=== PATIENT | female | born 1975 | race Caucasian/White ===

== ENCOUNTER 2016-06-19 00:04 | Inpatient (IN) | payer MEDICAID ==
[2016-06-19 00:47] LABS: HEMATOCRIT 39.6 % (36.0-47.0); HEMOGLOBIN 12.9 g/dL (12.0-15.5); HGB HCT DIFFERENCE -0.9; MEAN CORPUSCULAR HEMOGLOBIN 29.4 pg (27.0-33.4); MEAN CORPUSCULAR HGB CONC 32.6 g/dL (32.0-36.0); MEAN CORPUSCULAR VOLUME 90 fl (80-97); RED BLOOD COUNT 4.41 10^6/uL (3.72-5.28); RED CELL DISTRIBUTION WIDTH 16.5 % (11.5-14.0); WHITE BLOOD COUNT 26.7 10^3/uL (4.0-10.5)
[2016-06-19 01:03] LABS: APPEARANCE,URINE SLIGHTLY-CLOUDY; BILIRUBIN,URINE NEGATIVE (NEGATIVE); GLUCOSE, URINE NEGATIVE (NEGATIVE); KETONES,URINE NEGATIVE (NEGATIVE); LEUKOCYTE ESTERASE,URINE TRACE (NEGATIVE); NITRITE,URINE NEGATIVE (NEGATIVE); PROTEIN,URINE 100 mg/dL (NEGATIVE); UROBILINOGEN,URINE NEGATIVE mg/dL (<2.0)
[2016-06-19 01:14] LABS: BASOPHILS % (MANUAL) 0 % (0-2); EOSINOPHILS % (MANUAL) 0 % (0-6); LYMPHOCYTES % (MANUAL) 7 % (13-45); TOTAL CELLS COUNTED 100
[2016-06-19 01:15] LABS: ALANINE AMINOTRANSFERASE 34 U/L (9-52); ALBUMIN 4.5 g/dL (3.5-5.0); ALKALINE PHOSPHATASE 165 U/L (38-126); ANISOCYTOSIS 1+; ASPARTATE AMINO TRANSFERASE 26 U/L (14-36); BILIRUBIN,DIRECT 0.4 mg/dL (0.0-0.4); BILIRUBIN,TOTAL 1.1 mg/dL (0.2-1.3); BLOOD UREA NITROGEN 11 mg/dL (7-20); CALCIUM 9.4 mg/dL (8.4-10.2); CREATININE RESULT 0.82 mg/dL (0.52-1.25); GLUCOSE 162 mg/dL (75-110); LIPASE 56.6 U/L (23-300); POTASSIUM 4.6 mmol/L (3.6-5.0); TOTAL PROTEIN 7.8 g/dL (6.3-8.2)
[2016-06-19] MEDS ORDERED: PROMETHAZINE HCL 25 MG TABLET PO ONE (01:15)
[2016-06-19] MEDS ORDERED: OXYCODONE-ACETAMINOPHEN 5-325 MG TABLET PO ONE (01:15)
[2016-06-19] MEDS ORDERED: NORMAL SALINE 1000 ML 1,000 ML IV ONE ×2 (01:16)
--- NOTE | 2016-06-19 01:18 | ER Document Report ---
ED General - General Chief Complaint: Flank Pain Stated Complaint: FLANK PAIN Time seen by provider: 01:17 Notes: Patient is a 40-year-old female that comes emergency department for chief complaint of vomiting, diarrhea, flank pain, fever. She states that she started vomiting today, has vomited over 10 times, vomiting and diarrhea have both been nonbloody. Patient states she is currently on Levaquin, she was discharged 1 week ago from [facility] in [place] on this for a kidney infection. 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 Patient reports some dysuria. She states she hurts all over her abdomen. TRAVEL OUTSIDE OF THE [place] IN LAST 30 DAYS: No - Related Data Allergies/Adverse Reactions: No Known Allergies Allergy (Verified 03/20/16 22:52) Past Medical History - General Information source: Patient - Social History Smoking Status: Current Every Day Smoker Chew tobacco use (# tins/day): No Frequency of alcohol use: Occasional Drug Abuse: None Lives with: Family Family History: Reviewed & Not Pertinent Patient has suicidal ideation: No Patient has homicidal ideation: No Renal/ Medical History: Reports: Hx Kidney Stones, Other - Vesicoureteral reflux. Denies: Hx Peritoneal Dialysis Psychiatric Medical History: Reports: Hx Depression - anxiety Past Surgical History: Reports: Hx Cholecystectomy, Hx Tonsillectomy - Adenoids , Hx Tubal Ligation - Immunizations Hx Diphtheria, Pertussis, Tetanus Vaccination: Yes Review of Systems - Review of Systems Constitutional: See HPI EENT: No symptoms reported Cardiovascular: No symptoms reported Respiratory: No symptoms reported Gastrointestinal: See HPI Genitourinary: See HPI Female Genitourinary: No symptoms reported Musculoskeletal: No symptoms reported Skin: No symptoms reported Hematologic/Lymphatic: No symptoms reported Neurological/Psychological: No symptoms reported Physical Exam - Vital signs Vitals: Temp Pulse Resp BP Pulse Ox 98.2 F 124 H 16 122/82 96 06/19/16 00:10 06/19/16 00:10 06/19/16 00:10 06/19/16 00:10 06/19/16 00:10 Interpretation: Normal - General General appearance: Alert In distress: None - HEENT Head: Normocephalic, Atraumatic Eyes: Normal Conjunctiva: Normal Extraocular movements intact: Yes Eyelashes: Normal Pupils: PERRL Mucous membranes: Dry Pharynx: Normal Neck: Normal - Respiratory Respiratory status: No respiratory distress Chest status: Nontender Breath sounds: Normal. No: Decreased air movement Chest palpation: Normal - Cardiovascular Rhythm: Regular, Tachycardia Heart sounds: Normal auscultation, S1 appreciated, S2 appreciated Murmur: No - Abdominal Inspection: Normal Distension: No distension Bowel sounds: Normal Tenderness: Tender - Generalized tenderness, nonspecific, no guarding, no rigidity. No: Guarding Organomegaly: No organomegaly - Back Back: Tender - Generalized tenderness over the mid to lower back, no overt CVA tenderness - Extremities General upper extremity: Normal inspection, Nontender, Normal color, Normal ROM , Normal temperature General lower extremity: Normal inspection, Nontender, Normal color, Normal ROM , Normal temperature, Normal weight bearing. No: Denise's sign - Neurological Neuro grossly intact: Yes Cognition: Normal Orientation: AAOx4 [place] Coma Scale Eye Opening: Spontaneous [place] Coma Scale Verbal: Oriented [place] Coma Scale Motor: Obeys Commands [place] Coma Scale Total: 15 Speech: Normal Motor strength normal: LUE, RUE, LLE, RLE Sensory: Normal - Psychological Associated symptoms: Normal affect, Normal mood - Skin Skin Temperature: Warm Skin Moisture: Dry Skin Color: Normal Course - Re-evaluation Re-evalutation: Patient initially very tachycardic, has generalized flank and abdominal pain, no guarding, patient reports fever of 102 at home, and currently no fever. Patient is not toxic appearing. No hypotension. Marked leukocytosis of 26.7, suspected dehydration component but this is still elevated. Catheterized urine performed with patient's consent to perform a culture, shows white blood cells, trace leukocyte esterase, patient has been taking Levaquin. With reported repeated kidney infections, vesicoureteral reflux. Chemistry shows low bicarbonate. Patient given antibiotics, after IV fluids tachycardia has improved significantly. Patient has not vomited after nausea medication. Ultrasound shows no hydronephrosis. Discussed with Dr. Chan, recommends discussion with internal medicine for potential admission. Discussed with Dr. Chester, he recommends adding Zosyn, states he will admit to telemetry. - Vital Signs Vital signs: Temp Pulse Resp BP Pulse Ox 98.0 F 104 H 14 112/66 97 06/19/16 06:40 06/19/16 03:53 06/19/16 03:53 06/19/16 06:29 06/19/16 06:29 - Laboratory Result Diagrams: 06/19/16 00:27 06/19/16 00:27 Laboratory results interpreted by me: 06/19/16 06/19/16 06/19/16 00:27 00:27 00:27 WBC 26.7 H RDW 16.5 H Plt Count 554 H Seg Neuts % (Manual) 87 H Lymphocytes % (Manual) 7 L Abs Neuts (Manual) 23.2 H Abs Monocytes (Manual) 1.6 H Carbon Dioxide 20 L Anion Gap 20 H Glucose 162 H Alkaline Phosphatase 165 H Urine Protein 100 H Ur Leukocyte Esterase TRACE H 06/19/16 01:55 WBC RDW Plt Count Seg Neuts % (Manual) Lymphocytes % (Manual) Abs Neuts (Manual) Abs Monocytes (Manual) Carbon Dioxide Anion Gap Glucose Alkaline Phosphatase Urine Protein 30 H Ur Leukocyte Esterase TRACE H Discharge - Discharge Clinical Impression: Vomiting, Fever, Urinary tract infection, Flank pain Disposition: ADMITTED INPATIENT Admitting Provider: Hospitalist Unit Admitted: Telemetry
[2016-06-19 01:25] LABS: CARBON DIOXIDE 20 mmol/L (22-30); CHLORIDE 103 mmol/L (98-107); SODIUM 142.9 mmol/L (137-145)
[2016-06-19 01:27] LABS: ANION GAP 20 (5-19)
[2016-06-19 02:15] LABS: APPEARANCE,URINE SLIGHTLY-CLOUDY; BILIRUBIN,URINE NEGATIVE (NEGATIVE); GLUCOSE, URINE NEGATIVE (NEGATIVE); KETONES,URINE NEGATIVE (NEGATIVE); LEUKOCYTE ESTERASE,URINE TRACE (NEGATIVE); NITRITE,URINE NEGATIVE (NEGATIVE); PROTEIN,URINE 30 mg/dL (NEGATIVE); URINE SPECIFIC GRAVITY 1.011; UROBILINOGEN,URINE NEGATIVE mg/dL (<2.0)
[2016-06-19] MEDS ORDERED: MORPHINE SULFATE 10 MG/ML INJ IV ONE (04:27)
[2016-06-19] MEDS ORDERED: CEFTRIAXONE 1 GM/D5W RTU 50 ML IV ONE (04:28)
[2016-06-19] MEDS ORDERED: PIPERACILLIN/TAZOBACTAM 3.375 GM VIAL IV ONE (05:53)
[2016-06-19] MEDS ORDERED: ACETAMINOPHEN 325 MG TABLET PO PRN (07:41)
[2016-06-19 07:53] LABS: ABSOLUTE BASOPHILS # (AUTO) 0.1 10^3/uL (0.0-0.2); ABSOLUTE EOSINOPHILS # (AUTO) 0.1 10^3/uL (0.0-0.6); ABSOLUTE LYMPHOCYTES (AUTO) 1.7 10^3/uL (0.5-4.7); ABSOLUTE MONOCYTES (AUTO) 0.7 10^3/uL (0.1-1.4); ABSOLUTE NEUT (AUTO) 15.4 10^3/uL (1.7-8.2); BASOPHILS % (AUTO) 0.4 % (0-2); EOSINOPHILS % (AUTO) 0.4 % (0-6); HEMATOCRIT 31.7 % (36.0-47.0); HGB HCT DIFFERENCE -0.5; LYMPHOCYTES % (AUTO) 9.7 % (13-45); MEAN CORPUSCULAR HEMOGLOBIN 29.7 pg (27.0-33.4); MEAN CORPUSCULAR HGB CONC 32.9 g/dL (32.0-36.0); MEAN CORPUSCULAR VOLUME 90 fl (80-97); RED BLOOD COUNT 3.52 10^6/uL (3.72-5.28); RED CELL DISTRIBUTION WIDTH 16.8 % (11.5-14.0); SEGMENTED NEUTROPHILS % (AUTO) 85.5 % (42-78)
[2016-06-19 08:00] LABS: ANION GAP 12 (5-19); BLOOD UREA NITROGEN 10 mg/dL (7-20); CALCIUM 8.4 mg/dL (8.4-10.2); CARBON DIOXIDE 23 mmol/L (22-30); CHLORIDE 109 mmol/L (98-107); CREATININE RESULT 0.75 mg/dL (0.52-1.25); GLUCOSE 120 mg/dL (75-110); HEMOGLOBIN 10.4 g/dL (12.0-15.5); POTASSIUM 4.2 mmol/L (3.6-5.0); SODIUM 143.8 mmol/L (137-145)
[2016-06-19] MEDS: NORMAL SALINE 1000 ML 1,000 ML IV PRN ×2 (09:22→17:37)
[2016-06-19] MEDS: ENOXAPARIN SODIUM INJ 40 MG/0.4 ML DISP.SYRIN SUBCUT SCH (09:24)
[2016-06-19] MEDS: MORPHINE SULFATE 10 MG/ML INJ IV PRN ×2 (09:30→13:57)
--- NOTE | 2016-06-19 09:43 | PDOC H&P ---
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 States this is her first urinary tract infection in approximately 2-1/2 years. Was discharged from [facility] on Levaquin, which she has been taking as prescribed. Has done well until approximately the last 24 hours, when she's had bilateral flank pain, right greater than left, subjective fever, multiple episodes of nonbloody vomiting, and some diarrhea. Describes the flank pain and her dysuria like "someone's beating me up whenever I pee." Flank pain increases with much of any movement, and any contact with the area of involvement. States she was told recently that she does have nephrolithiasis. Old records from her recent hospital stay have reportedly been requested. Patient has been discussed with emergency room physician who evaluated the patient. . Laboratory results are listed in [facility] and are reviewed. X-ray summary results are listed below, with full report(s) reviewed. . Social history/personal habits: . 2 children. Unemployed. 3 cigarettes a day; smoked more in the recent past, but has been trying to quit. A fifth of rum every 3 weeks. Denies illicit drug use. Allergies/adverse reactions NKDA. Home medications normally none, except as noted above with the oral Levaquin. REVIEW OF SYSTEMS: Constitutional: See history and present illness. Eyes: No current vision complaints. ENT: No swallowing problems or complaints. No hearing problems or complaints. Pulmonary: No current complaints. Cardiovascular: No current complaints, including chest pain. Gastrointestinal: See history and present illness. States she is "prone to diarrhea" since her cholecystectomy. Skin: No current complaints, including rashes. Hematologic: No unusual easy bruising or bleeding. Neurologic: No current complaints, including numbness or tingling. Musculoskeletal: No current complaints, including painful joints. Psychiatric: Mild Anxiety Endocrine: No current complaints, including polyuria. Genitourinary: See history and present illness. PHYSICAL EXAMINATION: 5 feet 7 inches tall. 58.6 kg. BMI 20.2 kg/m. Blood pressure 112/66. Temperature 98.0. Pulse 84 and regular. 97% saturation on room air. Respirations are 15 and unlabored. Well-nourished well-developed young middle-aged female who appears obviously not to feel very well. Awake alert and cooperative, however. Female emergency room nurse Tatum is present. Skin is warm and dry. No grossly obvious evidence of rash in areas of skin examined. No subcutaneous nodules palpated. ENT: Hearing grossly normal Mildly hard of hearing to normal conversation. Tongue midline on protrusion pink and slightly tacky. Eyes: No scleral icterus. Pupils equal and reactive to light at 4 mm. [place] conjunctivae. Neck is supple and nontender to gentle active range of motion and palpation. Midline trachea. No palpable thyroid nodule mass enlargement or tenderness. Lymphatic: No palpable cervical or clavicular nodes. Neck and lymphatic exams limited by patient body habitus. Psychiatric: Reasonable insight into acute and chronic medical issues. Oriented to time location and why here. Lungs: Auscultation reveals clear and equal breath sounds bilaterally. No use of accessory respiratory muscles. Cardiovascular: Heart regular rate and rhythm, without gallop murmur or rub. No carotid or abdominal aortic bruits. No ankle or pedal edema. Faintly palpable dorsalis pedis pulses. Abdomen: soft, , slightly distended with rare bowel sounds. Diffusely tender, more so on the right flank and right costovertebral angle region. No evidence of guarding or peritoneal signs. Unable to adequately evaluate abdomen for masses or organomegaly due to distention and discomfort. Extremities: Feet are warm and dry. No calf tenderness to compression. No grossly obvious visual evidence of calf swelling. Gentle manipulation of lower extremities fails to reveal any obvious evidence of injury or instability to knees hips or ankles. Neurologic: Moves upper extremities grossly normally. Patellar reflexes absent. Absent Babinski. Light touch is intact at feet. Dorsiflexion and plantarflexion of feet 5 / 5 and symmetric. Past Medical History Cardiac Medical History: Reports: Other - Elevated blood pressure without diagnosis of hypertension, per patient. Denies: Congestive Heart Failure, DVT, Myocardial Infarction, Hyperlipidema, Pulmonary Embolism Pulmonary Medical History: Denies: Asthma, Chronic Obstructive Pulmonary Disease (COPD), Sleep Apnea EENT Medical History: Denies: Eyes, Ears, Throat Neurological Medical History: Denies: Hemorrhagic CVA, Ischemic CVA, Seizures Endocrine Medical History: Denies: Diabetes Mellitus Type 1, Diabetes Mellitus Type 2, Hyperthyroidism, Hypothyroidism Renal/ Medical History: Reports: Nephrolithiasis, Other - Vesicoureteral reflux GI Medical History: Reports: Other - Intermittent diarrhea since her cholecystectomy. Denies: Cirrhosis, Gastroesophageal Reflux Disease, Hepatitis, Peptic Ulcer Disease Musculoskeltal Medical History: Reports: None Skin Medical History: Reports: None Psychiatric Medical History: Reports: General Anxiety Disorder, Other - A fifth of rum every 3 weeks or so. Denies: Depression, Substance Abuse, Tobacco Dependency Hematology: Reports: None Infectious Medical History: Denies: Clostridium Difficile, Hepatitis B, Hepatitis C, Methicillin- Resistant Staph Aureus Past Surgical History Past Surgical History: Reports: Cholecystectomy, Tonsillectomy - Adenoids, Tubal Ligation Social History Information Source: Patient, Emergency Med Personnel, [facility] Records Lives with: Family Smoking Status: Current Every Day Smoker Frequency of Alcohol Use: Social - Fifth of rum every 3 weeks or so. Drugs: None - Advance Directive Resuscitation Status: Full Code Surrogate healthcare decision maker:: Mother Family History Family History: Reviewed & Not Pertinent Parental Family History Reviewed: Yes Children Family History Reviewed: Yes Sibling(s) Family History Reviewed.: Yes Medication/Allergy Home Medications: Amoxicillin/Potassium Clav [Augmentin 875-125 Tablet] 1 each PO BID #10 tablet 06/21/16 RX: Phenazopyridine HCl [Pyridium 200 mg Tablet] 200 mg PO Q8HP PRN #10 tablet 06/21/16 Tramadol HCl [Ultram 50 mg Tablet] 50 mg PO Q4HP PRN #10 tablet 06/21/16 Allergies/Adverse Reactions: No Known Allergies Allergy (Unverified 06/20/16 09:10) Physical Exam Vital Signs: Temp Pulse Resp BP Pulse Ox 98.0 F 104 H 16 107/68 97 06/19/16 06:40 06/19/16 03:53 06/19/16 07:01 06/19/16 07:01 06/19/16 07:01 Results Impressions: Renal Ultrasound 06/19/16 01:27 IMPRESSION: NORMAL RENAL AND BLADDER ULTRASOUND. Assessment & Plan - Diagnosis (1) Acidosis Is this a current diagnosis for this admission?: YesPlan: Follow-up Chem-7. Discussed with daytime team. (2) Flank pain Is this a current diagnosis for this admission?: YesPlan: When necessary pain medication. (3) Urinary tract infection Qualifiers: Urinary tract infection type: site unspecified Is this a current diagnosis for this admission?: YesPlan: Blood and urine cultures. Cristian. I have strongly encouraged patient not to get out of bed without notifying staff , to avoid a fall with injury. Knee high SCDs for DVT prophylaxis, [along with subcutaneous Lovenox . Impression and plans were discussed with patient, who concurs. Time spent in evaluation and management of patient: 59 minutes. (4) Congenital abnormality ureter Is this a current diagnosis for this admission?: Yes - Inpatient Certification Based on my medical assessment, after consideration of the patient's comorbidities, presenting symptoms, or acuity I expect that the services needed warrant INPATIENT care.: Yes I certify that my determination is in accordance with my understanding of Medicare's requirements for reasonable and necessary INPATIENT services [42 CFR 412.3e].: Yes Medical Necessity: Need Close Monitoring Due to Risk of Patient Decompensation, Need for IV Antibiotics, Risk of Complication if Not Cared For in Hospital, Risk of Diagnosis Which Will Require Inpatient Eval/Care/Monitoring Post Hospital Care: D/C or Transfer Summary
[2016-06-19] MEDS: THIAMINE HCL 100 MG TABLET PO SCH (11:31)
[2016-06-19] MEDS: MULTIVITAMIN TABLET PO SCH (11:32)
[2016-06-19] MEDS: PIPERACILLIN SODIUM/TAZOBACTAM 3.375 GM in NORMAL SALINE 100 ML IV SCH ×2 (11:32→17:37)
[2016-06-19] MEDS: FOLIC ACID 1 MG TABLET PO SCH (11:32)
[2016-06-19] MEDS: PROMETHAZINE HCL INJ 25 MG/1 ML VIAL IV PRN (12:49)
--- NOTE | 2016-06-19 17:33 | PDOC PROGRESS REPORT ---
Subjective Progress Note for:: 06/19/16 Subjective:: The patient was seen earlier today on rounds. The patient complains of ongoing flank pain citing the stretcher as the cause. The patient is also noting urinary hesitancy. The patient denies any nausea, vomiting, diarrhea, shortness of breath, dizziness, chest pain, heart palpitations, fevers, or chills. The patient has remained afebrile. Blood pressures have been in a good range. When prompted the patient voices no other concerns at this time. Review of systems: The rest of the review of systems is negative. Physical Exam Vital Signs: Temp Pulse Resp BP Pulse Ox 98.4 F 104 H 16 119/80 99 06/19/16 16:45 06/19/16 03:53 06/19/16 16:10 06/19/16 16:10 06/19/16 16:10 General appearance: PRESENT: no acute distress, cooperative, well-developed, well-nourished Head exam: PRESENT: atraumatic, normocephalic Eye exam: PRESENT: conjunctiva pink, EOMI, PERRLA. ABSENT: scleral icterus Ear exam: PRESENT: normal external ear exam Mouth exam: PRESENT: moist, tongue midline Neck exam: ABSENT: carotid bruit, JVD, lymphadenopathy, thyromegaly Respiratory exam: PRESENT: clear to auscultation [place]. ABSENT: rales, rhonchi, wheezes Cardiovascular exam: PRESENT: RRR. ABSENT: diastolic murmur, rubs, systolic murmur Pulses: PRESENT: normal dorsalis pedis pul Vascular exam: PRESENT: normal capillary refill GI/Abdominal exam: PRESENT: normal bowel sounds, soft. ABSENT: distended, guarding, mass, organolmegaly, rebound, tenderness Rectal exam: PRESENT: deferred Extremities exam: PRESENT: full ROM. ABSENT: calf tenderness, clubbing, pedal edema Neurological exam: PRESENT: alert, awake, oriented to person, oriented to place , oriented to time, oriented to situation, CN II-XII grossly intact. ABSENT: motor sensory deficit Psychiatric exam: PRESENT: appropriate affect, normal mood. ABSENT: homicidal ideation, suicidal ideation Skin exam: PRESENT: dry, intact, warm. ABSENT: cyanosis, rash Results Impressions: Renal Ultrasound 06/19/16 01:27 IMPRESSION: NORMAL RENAL AND BLADDER ULTRASOUND. Assessment & Plan - Diagnosis (1) Pyelonephritis Is this a current diagnosis for this admission?: YesPlan: Currently awaiting culture and sensitivity. Will continue current antibiotic coverage as the patient has had improvement. Will add Flomax given urinary frequency hesitancy. (2) Flank pain Is this a current diagnosis for this admission?: YesPlan: The patient's creatinine is in a normal range will scheduled Toradol and follow. (3) Vomiting Qualifiers: Nausea presence: unspecified Is this a current diagnosis for this admission?: YesPlan: Resolved at this time (4) Congenital abnormality ureter Is this a current diagnosis for this admission?: Yes - Time Time Spent with patient: 35 or more minutes Medications reviewed and adjusted accordingly: Yes Anticipated discharge: Home Within: within 24 hours, within 48 hours Disposition: The patient is a full code. Pending patient's symptomatology and diagnostic findings will reevaluate in the a.m.
[2016-06-19] MEDS: KETOROLAC TROMETHAMINE INJ/PF 30 MG/1 ML SDV IV SCH (17:38)
[2016-06-19] MEDS: TAMSULOSIN HCL 0.4 MG CAP.SR.24H PO SCH (18:39)
[2016-06-19] MEDS ORDERED: HYDROMORPHONE HCL INJ/PF 2 MG/ML AMPULE IV PRN (18:56)
[2016-06-20] MEDS: PIPERACILLIN SODIUM/TAZOBACTAM 3.375 GM in NORMAL SALINE 100 ML IV SCH ×4 (00:08→17:48)
[2016-06-20] MEDS: PROMETHAZINE HCL INJ 25 MG/1 ML VIAL IV PRN ×2 (00:08→20:17)
[2016-06-20] MEDS: KETOROLAC TROMETHAMINE INJ/PF 30 MG/1 ML SDV IV SCH ×4 (00:08→17:35)
[2016-06-20] MEDS: ENOXAPARIN SODIUM INJ 40 MG/0.4 ML DISP.SYRIN SUBCUT SCH (07:47)
[2016-06-20] MEDS: HYDROMORPHONE HCL INJ/PF 2 MG/ML AMPULE IV PRN ×3 (09:04→20:17)
[2016-06-20] MEDS: MULTIVITAMIN TABLET PO SCH (09:29)
[2016-06-20] MEDS: THIAMINE HCL 100 MG TABLET PO SCH (09:29)
[2016-06-20] MEDS: FOLIC ACID 1 MG TABLET PO SCH (09:29)
[2016-06-20] MEDS: CLONAZEPAM 1 MG TABLET PO PRN (11:23)
[2016-06-20 14:13] LABS: HEMATOCRIT 30.4 % (36.0-47.0); HGB HCT DIFFERENCE -0.4; MEAN CORPUSCULAR HEMOGLOBIN 29.9 pg (27.0-33.4); MEAN CORPUSCULAR HGB CONC 32.9 g/dL (32.0-36.0); MEAN CORPUSCULAR VOLUME 91 fl (80-97); RED BLOOD COUNT 3.34 10^6/uL (3.72-5.28); RED CELL DISTRIBUTION WIDTH 16.5 % (11.5-14.0)
[2016-06-20 14:31] LABS: ANION GAP 8 (5-19); BLOOD UREA NITROGEN 9 mg/dL (7-20); CALCIUM 9.4 mg/dL (8.4-10.2); CARBON DIOXIDE 26 mmol/L (22-30); CHLORIDE 109 mmol/L (98-107); CREATININE RESULT 0.72 mg/dL (0.52-1.25); GLUCOSE 86 mg/dL (75-110); POTASSIUM 3.7 mmol/L (3.6-5.0); SODIUM 143.4 mmol/L (137-145)
--- NOTE | 2016-06-20 16:34 | PDOC PROGRESS REPORT ---
Subjective Progress Note for:: 06/20/16 Subjective:: The patient was seen earlier today on rounds. The patient complains of terminated pain of her right flank area which radiates laterally the patient does note it is positional. The patient is also noting urinary hesitancy has improved. 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 The patient denies any nausea, vomiting, diarrhea, shortness of breath, dizziness, chest pain, heart palpitations, fevers, or chills. The patient has remained afebrile. Blood pressures have been in a good range. When prompted the patient voices no other concerns at this time. Review of systems: The rest of the review of systems is negative. Physical Exam Vital Signs: Temp Pulse Resp BP Pulse Ox 97.8 F 93 16 142/89 H 100 06/20/16 15:06 06/20/16 15:06 06/20/16 15:06 06/20/16 15:06 06/20/16 15:06 Intake & Output 06/18/16 06/19/16 06/20/16 23:59 23:59 23:59 Intake Total 225 1412 Balance 225 1412 General appearance: PRESENT: no acute distress, cooperative, well-developed, well-nourished Head exam: PRESENT: atraumatic, normocephalic Eye exam: PRESENT: conjunctiva pink, EOMI, PERRLA. ABSENT: scleral icterus Ear exam: PRESENT: normal external ear exam Mouth exam: PRESENT: moist, tongue midline Neck exam: ABSENT: carotid bruit, JVD, lymphadenopathy, thyromegaly Respiratory exam: PRESENT: clear to auscultation [place]. ABSENT: rales, rhonchi, wheezes Cardiovascular exam: PRESENT: RRR. ABSENT: diastolic murmur, rubs, systolic murmur Pulses: PRESENT: normal dorsalis pedis pul Vascular exam: PRESENT: normal capillary refill GI/Abdominal exam: PRESENT: normal bowel sounds, soft. ABSENT: distended, guarding, mass, organolmegaly, rebound, tenderness Rectal exam: PRESENT: deferred Extremities exam: PRESENT: full ROM. ABSENT: calf tenderness, clubbing, pedal edema Neurological exam: PRESENT: alert, awake, oriented to person, oriented to place , oriented to time, oriented to situation, CN II-XII grossly intact. ABSENT: motor sensory deficit Psychiatric exam: PRESENT: appropriate affect, normal mood. ABSENT: homicidal ideation, suicidal ideation Skin exam: PRESENT: dry, intact, warm. ABSENT: cyanosis, rash Results Laboratory Results: 06/20/16 14:01 06/20/16 14:01 06/20/16 06/20/16 14:01 14:01 WBC 6.0 RBC 3.34 L Hgb 10.0 L Hct 30.4 L MCV 91 MCH 29.9 MCHC 32.9 RDW 16.5 H Plt Count 395 Sodium 143.4 Potassium 3.7 Chloride 109 H Carbon Dioxide 26 Anion Gap 8 BUN 9 Creatinine 0.72 Est GFR ( Amer) > 60 Est GFR (Non-Af Amer) > 60 Glucose 86 Calcium 9.4 Impressions: Renal Ultrasound 06/19/16 01:27 IMPRESSION: NORMAL RENAL AND BLADDER ULTRASOUND. Limited or Localized CT 06/20/16 00:00 IMPRESSION: Nonobstructing stone right kidney. Assessment & Plan - Diagnosis (1) Pyelonephritis Is this a current diagnosis for this admission?: YesPlan: Currently awaiting culture and sensitivity. Will continue current antibiotic coverage as the patient has had improvement. Will continue Flomax given urinary frequency hesitancy. Will add Pyridium. CT stone sequence was negative for obstructive process. (2) Flank pain Is this a current diagnosis for this admission?: YesPlan: The patient's creatinine is in a normal range will scheduled Toradol and follow. (3) Vomiting Qualifiers: Nausea presence: unspecified Is this a current diagnosis for this admission?: YesPlan: Resolved at this time (4) Congenital abnormality ureter Is this a current diagnosis for this admission?: Yes - Time Time Spent with patient: 25-34 minutes Medications reviewed and adjusted accordingly: Yes Anticipated discharge: Home Within: within 24 hours
[2016-06-20] MEDS ORDERED: NORMAL SALINE 1000 ML 1,000 ML IV PRN (16:35)
[2016-06-20] MEDS ORDERED: PHENAZOPYRIDINE HCL 200 MG TABLET PO ONE (17:00)
[2016-06-20] MEDS: TAMSULOSIN HCL 0.4 MG CAP.SR.24H PO SCH (20:17)
[2016-06-20] MEDS: PHENAZOPYRIDINE HCL 200 MG TABLET PO SCH (21:56)
[2016-06-21] MEDS: PIPERACILLIN SODIUM/TAZOBACTAM 3.375 GM in NORMAL SALINE 100 ML IV SCH ×3 (00:17→11:45)
[2016-06-21] MEDS: KETOROLAC TROMETHAMINE INJ/PF 30 MG/1 ML SDV IV SCH ×3 (00:17→11:42)
[2016-06-21] MEDS: HYDROMORPHONE HCL INJ/PF 2 MG/ML AMPULE IV PRN ×2 (02:16→07:41)
[2016-06-21] MEDS: PROMETHAZINE HCL INJ 25 MG/1 ML VIAL IV PRN ×3 (02:16→12:34)
[2016-06-21] MEDS: PHENAZOPYRIDINE HCL 200 MG TABLET PO SCH (06:18)
[2016-06-21] MEDS: ENOXAPARIN SODIUM INJ 40 MG/0.4 ML DISP.SYRIN SUBCUT SCH (07:42)
[2016-06-21] MEDS: CLONAZEPAM 1 MG TABLET PO PRN (07:48)
[2016-06-21] MEDS: MULTIVITAMIN TABLET PO SCH (09:43)
[2016-06-21] MEDS: FOLIC ACID 1 MG TABLET PO SCH (09:43)
[2016-06-21] MEDS: THIAMINE HCL 100 MG TABLET PO SCH (09:43)
[2016-06-21] MEDS ORDERED: HYDROMORPHONE HCL INJ/PF 2 MG/ML AMPULE IV ONE (11:34)
[2016-06-21 11:54] VITALS: BP 132/74
--- NOTE | 2016-06-21 17:12 | PDOC DISCHARGE SUMMARY ---
General - Admit/Disc Date/PCP Admission Date/Primary Care Provider: 06/19/16 07:41 [facility]. Discharge Date: 06/21/16 - Discharge Diagnosis (1) Pyelonephritis Is this a current diagnosis for this admission?: Yes (2) Congenital abnormality ureter Is this a current diagnosis for this admission?: Yes - Additional Information Resuscitation Status: Full Code Discharge Diet: As Tolerated, Regular Discharge Activity: Activity As Tolerated Home Medications: Amoxicillin/Potassium Clav [Augmentin 875-125 Tablet] 1 each PO BID #10 tablet 06/21/16 Phenazopyridine HCl [Pyridium 200 mg Tablet] 200 mg PO Q8HP PRN #10 tablet 06/21 Tramadol HCl [Ultram 50 mg Tablet] 50 mg PO Q4HP PRN #10 tablet 06/21/16 History of Present Illness Patient complains of: Abdominal pain, flank pain, vomiting, fever History of Present Illness: ROBERT BELLAMY is a 40 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 States this is her first urinary tract infection in approximately 2-1/2 years. Was discharged from [facility] on Levaquin, which she has been taking as prescribed. Has done well until approximately the last 24 hours, when she's had bilateral flank pain, right greater than left, subjective fever, multiple episodes of nonbloody vomiting, and some diarrhea. Describes the flank pain and her dysuria like "someone's beating me up whenever I pee." Flank pain increases with much of any movement, and any contact with the area of involvement. States she was told recently that she does have nephrolithiasis. Hospital Course Hospital Course: The patient was admitted to continue was telemetry unit. Urine analysis and culture was obtained. The patient had findings suggestive of a urinary tract infection given recent history pyelonephritis. Patient's urine culture revealed no growth given recent antibiotic use this most likely was skewed. The patient's stay was complicated by emotional stressors such as learning she was going to be a grandmother. The patient had numerous emotional outbursts to nursing staff and including myself. These outbursts were abusive verbally in nature to nursing staff. The patient is stable for discharge with a scheduled follow-up with [facility] Selected Entries 06/21/16 11:51 Temperature 97.6 F Pulse Rate 83 Blood Pressure 132/74 H [Upper Arm] 06/20/16 14:01 WBC 6.0 06/20/16 11:15 Blood Culture - Preliminary Blood NO GROWTH IN 24 HOURS 06/20/16 10:10 Blood Culture - Preliminary Blood NO GROWTH IN 24 HOURS 06/19/16 00:27 Urine Culture - Final Catheterized Urine NO GROWTH 2 DAYS Physical Exam Vital Signs: Temp Pulse Resp BP Pulse Ox 97.6 F 83 18 132/74 H 99 06/21/16 11:51 06/21/16 11:51 06/21/16 11:51 06/21/16 11:51 06/21/16 11:51 Intake & Output 06/19/16 06/20/16 06/21/16 23:59 23:59 23:59 Intake Total 225 2662 2009 Output Total 1650 Balance 225 2662 359 Weight 58.6 kg General appearance: PRESENT: no acute distress, cooperative, well-developed, well-nourished Head exam: PRESENT: atraumatic, normocephalic Eye exam: PRESENT: conjunctiva pink, EOMI, PERRLA. ABSENT: scleral icterus Ear exam: PRESENT: normal external ear exam Mouth exam: PRESENT: moist, tongue midline Neck exam: ABSENT: carotid bruit, JVD, lymphadenopathy, thyromegaly Respiratory exam: PRESENT: clear to auscultation [place]. ABSENT: rales, rhonchi, wheezes Cardiovascular exam: PRESENT: RRR. ABSENT: diastolic murmur, rubs, systolic murmur Pulses: PRESENT: normal dorsalis pedis pul Vascular exam: PRESENT: normal capillary refill GI/Abdominal exam: PRESENT: normal bowel sounds, soft. ABSENT: distended, guarding, mass, organolmegaly, rebound, tenderness Rectal exam: PRESENT: deferred Extremities exam: PRESENT: full ROM. ABSENT: calf tenderness, clubbing, pedal edema Neurological exam: PRESENT: alert, awake, oriented to person, oriented to place , oriented to time, oriented to situation, CN II-XII grossly intact. ABSENT: motor sensory deficit Psychiatric exam: PRESENT: appropriate affect, normal mood. ABSENT: homicidal ideation, suicidal ideation Skin exam: PRESENT: dry, intact, warm. ABSENT: cyanosis, rash Results Laboratory Results: Labs- Last Values WBC 6.0 10^3/uL (4.0-10.5) 06/20/16 14:01 RBC 3.34 10^6/uL (3.72-5.28) L 06/20/16 14:01 Hgb 10.0 g/dL (12.0-15.5) L 06/20/16 14:01 Hct 30.4 % (36.0-47.0) L 06/20/16 14:01 MCV 91 fl (80-97) 06/20/16 14:01 MCH 29.9 pg (27.0-33.4) 06/20/16 14:01 MCHC 32.9 g/dL (32.0-36.0) 06/20/16 14:01 RDW 16.5 % (11.5-14.0) H 06/20/16 14:01 Plt Count 395 10^3/uL (150-450) 06/20/16 14:01 Total Counted 100 06/19/16 00:27 Seg Neutrophils % 85.5 % (42-78) H 06/19/16 06:45 Seg Neuts % (Manual) 87 % (42-78) H 06/19/16 00:27 Lymphocytes % 9.7 % (13-45) L 06/19/16 06:45 Lymphocytes % (Manual) 7 % (13-45) L 06/19/16 00:27 Monocytes % 4.0 % (3-13) 06/19/16 06:45 Monocytes % (Manual) 6 % (3-13) 06/19/16 00:27 Eosinophils % 0.4 % (0-6) 06/19/16 06:45 Eosinophils % (Manual) 0 % (0-6) 06/19/16 00:27 Basophils % 0.4 % (0-2) 06/19/16 06:45 Basophils % (Manual) 0 % (0-2) 06/19/16 00:27 Absolute Neutrophils 15.4 10^3/uL (1.7-8.2) H 06/19/16 06:45 Abs Neuts (Manual) 23.2 10^3/uL (1.7-8.2) H 06/19/16 00:27 Absolute Lymphocytes 1.7 10^3/uL (0.5-4.7) 06/19/16 06:45 Abs Lymphs (Manual) 1.9 10^3/uL (0.5-4.7) 06/19/16 00:27 Absolute Monocytes 0.7 10^3/uL (0.1-1.4) 06/19/16 06:45 Abs Monocytes (Manual) 1.6 10^3/uL (0.1-1.4) H 06/19/16 00:27 Absolute Eosinophils 0.1 10^3/uL (0.0-0.6) 06/19/16 06:45 Absolute Eos (Manual) 0.0 10^3/uL (0.0-0.6) 06/19/16 00:27 Absolute Basophils 0.1 10^3/uL (0.0-0.2) 06/19/16 06:45 Abs Basophils (Manual) 0.0 10^3/uL (0.0-0.2) 06/19/16 00:27 Platelet Comment INCREASED 06/19/16 00:27 Anisocytosis 1+ 06/19/16 00:27 Sodium 143.4 mmol/L (137-145) 06/20/16 14:01 Potassium 3.7 mmol/L (3.6-5.0) 06/20/16 14:01 Chloride 109 mmol/L (98-107) H 06/20/16 14:01 Carbon Dioxide 26 mmol/L (22-30) 06/20/16 14:01 Anion Gap 8 (5-19) 06/20/16 14:01 BUN 9 mg/dL (7-20) 06/20/16 14:01 Creatinine 0.72 mg/dL (0.52-1.25) 06/20/16 14:01 Est GFR ( Amer) > 60 (>60) 06/20/16 14:01 Est GFR (Non-Af Amer) > 60 (>60) 06/20/16 14:01 Glucose 86 mg/dL (75-110) 06/20/16 14:01 Calcium 9.4 mg/dL (8.4-10.2) 06/20/16 14:01 Total Bilirubin 1.1 mg/dL (0.2-1.3) 06/19/16 00:27 Direct Bilirubin 0.4 mg/dL (0.0-0.4) 06/19/16 00:27 Indirect Bilirubin Not Reportable 06/19/16 00:27 Neonat Total Bilirubin Not Reportable 06/19/16 00:27 AST 26 U/L (14-36) 06/19/16 00:27 ALT 34 U/L (9-52) 06/19/16 00:27 Alkaline Phosphatase 165 U/L (38-126) H 06/19/16 00:27 Total Protein 7.8 g/dL (6.3-8.2) 06/19/16 00:27 Albumin 4.5 g/dL (3.5-5.0) 06/19/16 00:27 Lipase 56.6 U/L (23-300) 06/19/16 00:27 Urine Color YELLOW 06/19/16 01:55 Urine Appearance SLIGHTLY-CLOUDY 06/19/16 01:55 Urine pH 5.0 (5.0-9.0) 06/19/16 01:55 Ur Specific [place] 1.011 06/19/16 01:55 Urine Protein 30 mg/dL (NEGATIVE) H 06/19/16 01:55 Urine Glucose (UA) NEGATIVE mg/dL (NEGATIVE) 06/19/16 01:55 Urine Ketones NEGATIVE mg/dL (NEGATIVE) 06/19/16 01:55 Urine Blood NEGATIVE (NEGATIVE) 06/19/16 01:55 Urine Nitrite NEGATIVE (NEGATIVE) 06/19/16 01:55 Urine Bilirubin NEGATIVE (NEGATIVE) 06/19/16 01:55 Urine Urobilinogen NEGATIVE mg/dL (<2.0) 06/19/16 01:55 Ur Leukocyte Esterase TRACE (NEGATIVE) H 06/19/16 01:55 Urine WBC (Auto) 16 /HPF 06/19/16 01:55 Urine RBC (Auto) 1 /HPF 06/19/16 01:55 Urine Bacteria (Auto) TRACE /HPF 06/19/16 01:55 Squamous Epi Cells Auto 2 /HPF 06/19/16 01:55 Urine Mucus (Auto) RARE /LPF 06/19/16 01:55 Urine Ascorbic Acid NEGATIVE (NEGATIVE) 06/19/16 01:55 Urine HCG, Qual NEGATIVE (NEGATIVE) 06/19/16 00:27 C. difficile Tox (PCR) NEGATIVE (NEGATIVE) 06/20/16 12:00 Impressions: Renal Ultrasound 06/19/16 01:27 IMPRESSION: NORMAL RENAL AND BLADDER ULTRASOUND. Limited or Localized CT 06/20/16 00:00 IMPRESSION: Nonobstructing stone right kidney. Qualifiers PATEINT BEING DISCHARGED WITH ANY OF THE FOLLOWING DIAGNOSIS?: No Plan Discharge Plan: The patient is to follow-up with urology as already scheduled. Time Spent: Less than 30 Minutes
== END 2016-06-21 13:10 | disposition home or self-care (01) | DRG 690 ==
LOC: ER 00:04 → EH 06:04 → UNDOADMIN 06:04 → EH 07:41 → 4S 17:23
PROVIDERS: ADMIT Family Medicine; ATTEND Family Medicine
DX: N12 Tubulo-interstitial nephritis, not specified as acute or chronic (principal); E87.2 Acidosis; Q62.5 Duplication of ureter; N20.0 Calculus of kidney; F17.210 Nicotine dependence, cigarettes, uncomplicated; F41.1 Generalized anxiety disorder; Z90.49 Acquired absence of other specified parts of digestive tract; F32.9 Major depressive disorder, single episode, unspecified
CPT/HCPCS: 36415; 51701; 76380; 76770; 80048; 80053; 81001; 81025; 83690; 85025; 85027; 87040; 87077; 87086; 87186; 87493; 96361; 96365; 96375; 99285; J0696; J1170; J1650; J1885; J2270; J2543; J2550; J3490; J7030

== ENCOUNTER 2016-10-27 23:36 | Emergency (ER) | payer MEDICAID ==
[2016-10-28] MEDS ORDERED: KETOROLAC TROMETHAMINE 60 MG/2 ML SDV IM ONE (00:35)
[2016-10-28] MEDS ORDERED: ONDANSETRON 4 MG TAB.RAPDIS PO ONE (00:35)
--- NOTE | 2016-10-28 00:37 | ER Document Report ---
ED Medical Screen (RME) - General Chief Complaint: Flank Pain Stated Complaint: FLANK PAIN Time Seen by Provider: 10/28/16 00:35 Mode of Arrival: Ambulatory Information source: Patient Notes: 41-year-old female presents to ED for bilateral flank pain. She states she has a history of 11% reflux with frequent kidney infections. 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 She has been nauseated with 6-7 vomits today. She states her kidneys director sore and swollen. She has had pain for about 4 hours. Patient is very tender to touch bilateral flank. And she tried retching in the pit area. I have greeted and performed a rapid initial assessment of this patient. A comprehensive ED assessment and evaluation of the patient, analysis of test results and completion of medical decision making process will be conducted by an additional ED providers. TRAVEL OUTSIDE OF THE [place] IN LAST 30 DAYS: No - Related Data Allergies/Adverse Reactions: No Known Allergies Allergy (Unverified 06/20/16 09:10) Past Medical History - Past Medical History Cardiac Medical History: Denies: Hx Congestive Heart Failure, Hx DVT, Hx Heart Attack, Hx Hypercholesterolemia, Hx Pulmonary Embolism Pulmonary Medical History: Denies: Hx Asthma, Hx COPD, Hx Sleep Apnea Neurological Medical History: Denies: Hx Seizures Endocrine Medical History: Denies: Hx Diabetes Mellitus Type 1, Hx Diabetes Mellitus Type 2, Hx Hyperthyroidism, Hx Hypothyroidism Renal/ Medical History: Reports: Hx Kidney Stones. Denies: Hx Peritoneal Dialysis GI Medical History: Denies: Hx Cirrhosis, Hx Gastroesophageal Reflux Disease, Hx Hepatitis Psychiatric Medical History: Denies: Hx Depression Infectious Medical History: Denies: Hx C-Diff, Hx Hepatitis, Hx MRSA Past Surgical History: Reports: Hx Cholecystectomy, Hx Tonsillectomy - Adenoids , Hx Tubal Ligation - Immunizations Hx Diphtheria, Pertussis, Tetanus Vaccination: Yes Physical Exam - Vital signs Vitals: Temp Pulse Resp BP Pulse Ox 99.1 F 134 H 24 H 124/64 95 10/27/16 23:54 10/27/16 23:54 10/27/16 23:54 10/27/16 23:54 10/27/16 23:54 Course - Vital Signs Vital signs: Temp Pulse Resp BP Pulse Ox 99.1 F 134 H 24 H 124/64 95 10/27/16 23:54 10/27/16 23:54 10/27/16 23:54 10/27/16 23:54 10/27/16 23:54
--- NOTE | 2016-10-28 01:32 | RADIOLOGY REPORT (SQ) ---
EXAM DESCRIPTION: [employer] COMPLETED DATE/TIME: 10/28/2016 1:05 am REASON FOR STUDY: bilateral flank pain COMPARISON: 06/19/2016. CT, 06/20/2016. TECHNIQUE: Dynamic and static grayscale images acquired of the kidneys and bladder and recorded on P ACS. Additional selected color Doppler and spectral images recorded. LIMITATIONS: None. FINDINGS: RIGHT KIDNEY: 12.8 cm. Normal size. Normal echogenicity. No solid or suspicious mass es. No hydronephrosis. No calcifications. LEFT KIDNEY: 11.9 cm. Normal size. Normal echogenicity. No solid or suspicious masses. No hyd ronephrosis. No calcifications. BLADDER: No masses. Ureteral jet flow not demonstrated, a nonspecific finding. OTHER FINDINGS: No other significant finding. IMPRESSION: NORMAL RENAL AND BLADDER ULTRASOUND. TECHNICAL DOCUMENTATION: JOB ID: [id number] [employer]- All Rights Reserved
[2016-10-28] MEDS ORDERED: MORPHINE SULFATE 10 MG/ML INJ IV PRN (02:01)
[2016-10-28] MEDS ORDERED: NORMAL SALINE 1000 ML 1,000 ML IV ONE (02:01)
--- NOTE | 2016-10-28 02:04 | ER Document Report ---
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 Patient states this feels similar to when she has had pyelonephritis in the past. She does describe as a severe, constant, aching pain to her bilateral flanks. Nothing improves or worsens her pain. She has not seen a primary doctor regarding today's concerns. She denies any recorded fever at home. No chest pain or shortness of breath. TRAVEL OUTSIDE OF THE [place] IN LAST 30 DAYS: No - Related Data Allergies/Adverse Reactions: No Known Allergies Allergy (Unverified 06/20/16 09:10) Past Medical History - General Information source: Patient - Social History Smoking Status: Never Smoker Frequency of alcohol use: None Drug Abuse: None Lives with: Alone Family History: Reviewed & Not Pertinent Patient has suicidal ideation: No Patient has homicidal ideation: No - Past Medical History Cardiac Medical History: Denies: Hx Congestive Heart Failure, Hx DVT, Hx Heart Attack, Hx Hypercholesterolemia, Hx Pulmonary Embolism Pulmonary Medical History: Denies: Hx Asthma, Hx COPD, Hx Sleep Apnea Neurological Medical History: Denies: Hx Seizures Endocrine Medical History: Denies: Hx Diabetes Mellitus Type 1, Hx Diabetes Mellitus Type 2, Hx Hyperthyroidism, Hx Hypothyroidism Renal/ Medical History: Reports: Hx Kidney Stones. Denies: Hx Peritoneal Dialysis GI Medical History: Denies: Hx Cirrhosis, Hx Gastroesophageal Reflux Disease, Hx Hepatitis Psychiatric Medical History: Denies: Hx Depression Infectious Medical History: Denies: Hx C-Diff, Hx Hepatitis, Hx MRSA Past Surgical History: Reports: Hx Cholecystectomy, Hx Tonsillectomy - Adenoids , Hx Tubal Ligation - Immunizations Hx Diphtheria, Pertussis, Tetanus Vaccination: Yes Review of Systems - Review of Systems Notes: Constitutional: Negative for fever. HENT: Negative for sore throat. Eyes: Negative for visual changes. Cardiovascular: Negative for chest pain. Respiratory: Negative for shortness of breath. Gastrointestinal: Positive for bilateral flank pain and vomiting Genitourinary: Negative for dysuria. Musculoskeletal: Negative for back pain. Skin: Negative for rash. Neurological: Negative for headaches, weakness or numbness. 10 point ROS negative except as marked above and in HPI. Physical Exam - Vital signs Vitals: Temp Pulse Resp BP Pulse Ox 99.1 F 134 H 24 H 124/64 95 10/27/16 23:54 10/27/16 23:54 10/27/16 23:54 10/27/16 23:54 10/27/16 23:54 Interpretation: Tachycardic, Tachypneic Notes: PHYSICAL EXAMINATION: GENERAL: Appears mildly uncomfortable but in no acute distress HEAD: Atraumatic, normocephalic. EYES: Pupils equal round and reactive to light, extraocular movements intact, sclera anicteric, conjunctiva are normal. ENT: nares patent, oropharynx clear without exudates. Moderately dry mucous membranes. NECK: Normal range of motion, supple without lymphadenopathy LUNGS: Breath sounds clear to auscultation bilaterally and equal. No wheezes rales or rhonchi. HEART: Regular tachycardia without murmurs ABDOMEN: Soft, no CVA tenderness, otherwise nontender, normoactive bowel sounds. No guarding, no rebound. No masses appreciated. EXTREMITIES: Normal range of motion, no pitting or edema. No cyanosis. NEUROLOGICAL: No focal neurological deficits. Moves all extremities spontaneously and on command. PSYCH: Anxious SKIN: Warm, Dry, normal turgor, no rashes or lesions noted. Course - Re-evaluation Re-evalutation: 10/28/16 02:03 Presentation is most consistent with acute pyelonephritis. Laboratories do demonstrate a large amount of white blood cells in the urine as well as bacteria. Patient has had constitutional symptoms at home as well as a fever. CVA tenderness is present on exam. The remainder laboratories are relatively unremarkable without evidence of renal dysfunction. I do not suspect an acute appendicitis, biliary pathology, pancreatitis, intra-abdominal abscess, or tubo- ovarian abscess based on history and examination. Patient has been given a dose of IV ceftriaxone and a liter of fluids. Patient is able to tolerate oral intake without difficulty. Will be discharged home on 7 day course of cephalexin. A urine culture has been sent. Strict return precautions and follow-up recommendations have been discussed at length. - Vital Signs Vital signs: Temp Pulse Resp BP Pulse Ox 99.1 F 134 H 24 H 124/64 95 10/27/16 23:54 10/27/16 23:54 10/27/16 23:54 10/27/16 23:54 10/27/16 23:54 - Laboratory Result Diagrams: 10/28/16 02:36 Laboratory results interpreted by me: 10/28/16 01:33 Urine Protein >=500 H Ur Leukocyte Esterase SMALL H - Diagnostic Test Radiology reviewed: Image reviewed, Reports reviewed Radiology results interpreted by me: 10/28/16 02:51 Renal ultrasound: No hydronephrosis Discharge - Discharge Clinical Impression: Pyelonephritis Condition: Good Disposition: HOME, SELF-CARE Additional Instructions: You have been diagnosed with a condition called pyelonephritis which is an infection involving your kidneys and bladder. You have been given a dose of antibiotics here in the emergency department to help begin to treat this infection. Your also being sent home on antibiotics. Please start taking these later on today when you fill the prescription. Complete the course even if you feel better. Please return if you have persistent vomiting, pass out, have worsening pain, become unable to tolerate fluids, or have any other symptoms that are concerning to you. Please follow-up with your primary care physician in the next 24-48 hours. Prescriptions: Cephalexin Monohydrate [Keflex 500 mg Capsule] 500 mg PO QID #28 capsule
[2016-10-28 02:06] LABS: APPEARANCE,URINE SLIGHTLY-CLOUDY; BILIRUBIN,URINE NEGATIVE (NEGATIVE); GLUCOSE, URINE NEGATIVE (NEGATIVE); KETONES,URINE NEGATIVE (NEGATIVE); LEUKOCYTE ESTERASE,URINE SMALL (NEGATIVE); NITRITE,URINE NEGATIVE (NEGATIVE); PROTEIN,URINE >=500 mg/dL (NEGATIVE); URINE SPECIFIC GRAVITY 1.008; UROBILINOGEN,URINE NEGATIVE mg/dL (<2.0)
[2016-10-28] MEDS ORDERED: CEFTRIAXONE 1 GM/D5W RTU 50 ML IV ONE (02:17)
[2016-10-28] MEDS ORDERED: ONDANSETRON HCL INJ/PF 4 MG/2 ML SDV IV ONE (02:30)
[2016-10-28] MEDS ORDERED: ONDANSETRON ODT 4 MG TAB (6 TAB/DSPK) PO PRN (02:30)
[2016-10-28 03:10] LABS: ANION GAP 11 (5-19); BLOOD UREA NITROGEN 12 mg/dL (7-20); CALCIUM 8.8 mg/dL (8.4-10.2); CARBON DIOXIDE 22 mmol/L (22-30); CHLORIDE 105 mmol/L (98-107); CREATININE RESULT 0.84 mg/dL (0.52-1.25); GLUCOSE 117 mg/dL (75-110); POTASSIUM 4.1 mmol/L (3.6-5.0)
[2016-10-28 04:28] VITALS: BP 118/65
== END 2016-10-28 04:27 | disposition home or self-care (01) ==
LOC: ER 23:36
DX: N12 Tubulo-interstitial nephritis, not specified as acute or chronic (principal); Q62.5 Duplication of ureter; R00.0 Tachycardia, unspecified; R06.82 Tachypnea, not elsewhere classified; R10.9 Unspecified abdominal pain; R11.2 Nausea with vomiting, unspecified; Z87.442 Personal history of urinary calculi; Z90.49 Acquired absence of other specified parts of digestive tract; Z98.51 Tubal ligation status
CPT/HCPCS: 99284; 96372; 96375; 96365; 36415; 87086; 81025; 80048; 81001; 76775; J1885; S0119; J2270; J2405; J7030; J0696

== ENCOUNTER 2017-02-16 12:43 | Emergency (ER) | payer MEDICAID ==
[2017-02-16] MEDS ORDERED: NORMAL SALINE 1000 ML 1,000 ML IV ONE (13:12)
--- NOTE | 2017-02-16 13:15 | ER Document Report ---
ED Medical Screen (RME) - General Chief Complaint: High Blood Pressure Stated Complaint: ANKLE PAIN, SWELLING,BLOOD PRESSURE PROBLEMS Time Seen by Provider: 02/16/17 13:11 Mode of Arrival: Ambulatory Information source: Patient TRAVEL OUTSIDE OF THE [place] 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 Wants to be checked for Hepatitis and HIV - Related Data Allergies/Adverse Reactions: No Known Allergies Allergy (Unverified 06/20/16 09:10) Home Medications: Current Home Medications No Home Medications 02/16/17 [History] Past Medical History - Social History Frequency of alcohol use: None Drug Abuse: Heroin, Methamphetamine - Past Medical History Cardiac Medical History: Denies: Hx Congestive Heart Failure, Hx DVT, Hx Heart Attack, Hx Hypercholesterolemia, Hx Pulmonary Embolism Pulmonary Medical History: Denies: Hx Asthma, Hx COPD, Hx Sleep Apnea Neurological Medical History: Denies: Hx Seizures Endocrine Medical History: Denies: Hx Diabetes Mellitus Type 1, Hx Diabetes Mellitus Type 2, Hx Hyperthyroidism, Hx Hypothyroidism Renal/ Medical History: Reports: Hx Kidney Stones. Denies: Hx Peritoneal Dialysis GI Medical History: Denies: Hx Cirrhosis, Hx Gastroesophageal Reflux Disease, Hx Hepatitis Psychiatric Medical History: Denies: Hx Depression Infectious Medical History: Denies: Hx C-Diff, Hx Hepatitis, Hx MRSA Past Surgical History: Reports: Hx Cholecystectomy, Hx Tonsillectomy - Adenoids , Hx Tubal Ligation - Immunizations Hx Diphtheria, Pertussis, Tetanus Vaccination: Yes Physical Exam - Vital signs Vitals: Temp Pulse Resp BP Pulse Ox 98.4 F 122 H 20 167/89 H 100 02/16/17 12:48 02/16/17 12:48 02/16/17 12:48 02/16/17 12:48 02/16/17 12:48 Course - Vital Signs Vital signs: Temp Pulse Resp BP Pulse Ox 98.4 F 122 H 20 167/89 H 100 02/16/17 12:48 02/16/17 12:48 02/16/17 12:48 02/16/17 12:48 02/16/17 12:48
[2017-02-16 14:26] LABS: APPEARANCE,URINE CLEAR; BILIRUBIN,URINE NEGATIVE (NEGATIVE); GLUCOSE, URINE NEGATIVE (NEGATIVE); KETONES,URINE NEGATIVE (NEGATIVE); LEUKOCYTE ESTERASE,URINE TRACE (NEGATIVE); NITRITE,URINE NEGATIVE (NEGATIVE); PROTEIN,URINE NEGATIVE (NEGATIVE); URINE SPECIFIC GRAVITY 1.011; UROBILINOGEN,URINE NEGATIVE mg/dL (<2.0)
[2017-02-16 14:30] LABS: ABSOLUTE EOSINOPHILS # (AUTO) 0.2 10^3/uL (0.0-0.6); ABSOLUTE LYMPHOCYTES (AUTO) 1.8 10^3/uL (0.5-4.7); ABSOLUTE MONOCYTES (AUTO) 0.4 10^3/uL (0.1-1.4); ABSOLUTE NEUT (AUTO) 4.2 10^3/uL (1.7-8.2); BASOPHILS % (AUTO) 0.7 % (0-2); EOSINOPHILS % (AUTO) 2.8 % (0-6); HEMATOCRIT 38.3 % (36.0-47.0); HGB HCT DIFFERENCE 0.7; LYMPHOCYTES % (AUTO) 27.5 % (13-45); MEAN CORPUSCULAR HEMOGLOBIN 29.9 pg (27.0-33.4); MEAN CORPUSCULAR HGB CONC 33.8 g/dL (32.0-36.0); MEAN CORPUSCULAR VOLUME 88 fl (80-97); MONOCYTES % (AUTO) 5.7 % (3-13); RED BLOOD COUNT 4.33 10^6/uL (3.72-5.28); RED CELL DISTRIBUTION WIDTH 16.1 % (11.5-14.0); SEGMENTED NEUTROPHILS % (AUTO) 63.3 % (42-78); WHITE BLOOD COUNT 6.6 10^3/uL (4.0-10.5)
[2017-02-16 14:39] LABS: ALANINE AMINOTRANSFERASE 26 U/L (9-52); ALBUMIN 4.7 g/dL (3.5-5.0); ALKALINE PHOSPHATASE 323 U/L (38-126); ANION GAP 15 (5-19); ASPARTATE AMINO TRANSFERASE 16 U/L (14-36); BILIRUBIN,DIRECT 0.4 mg/dL (0.0-0.4); BILIRUBIN,TOTAL 0.5 mg/dL (0.2-1.3); BLOOD UREA NITROGEN 11 mg/dL (7-20); CALCIUM 9.6 mg/dL (8.4-10.2); CARBON DIOXIDE 23 mmol/L (22-30); CHLORIDE 105 mmol/L (98-107); CREATINE KINASE 50 U/L (30-135); CREATININE RESULT 0.61 mg/dL (0.52-1.25); GLUCOSE 93 mg/dL (75-110); POTASSIUM 4.8 mmol/L (3.6-5.0); SODIUM 142.8 mmol/L (137-145)
--- NOTE | 2017-02-16 14:51 | RADIOLOGY REPORT (SQ) ---
EXAM DESCRIPTION: CHEST PA/LAT COMPLETED DATE/TIME: 02/16/2017 2:37 pm REASON FOR STUDY: weakness COMPARISON: 12/31/2012. EXAM PARAMETERS: NUMBER OF VIEWS: two views TECHNIQUE: Digital Frontal and Lateral radiographic views of the chest acquired. RADIATION DOSE: NA LIMITATIONS: none FINDINGS: LUNGS AND PLEURA: No opacities, masses or pneumothorax. No pleural effusion. MEDIASTINUM AND HILAR STRUCTURES: No masses or contour abnormalities. HEART AND VASCULAR STRUCTURES: Heart normal size. No evidence for failure. BONES: No acute findings. HARDWARE: None in the chest. OTHER: No other significant finding. IMPRESSION: NO SIGNIFICANT RADIOGRAPHIC FINDING IN THE CHEST. TECHNICAL DOCUMENTATION: JOB ID: [id number] [employer]- All Rights Reserved
[2017-02-16 15:04] LABS: CREATINE KINASE MB < 0.22 ng/mL (<4.55); TROPONIN I < 0.012 ng/mL
[2017-02-16] MEDS ORDERED: KETOROLAC TROMETHAMINE 60 MG/2 ML SDV IV ONE (15:39)
[2017-02-16] MEDS ORDERED: FUROSEMIDE 20 MG TABLET PO ONE (15:40)
--- NOTE | 2017-02-16 16:01 | ER Document Report ---
ED General <HARINI EATON - Last Filed: 02/16/17 16:31> - General Mode of Arrival: Ambulatory TRAVEL OUTSIDE OF THE [place] IN LAST 30 DAYS: No <FROYLAN HARRIS - Last Filed: 02/16/17 18:58> - General Chief Complaint: High Blood Pressure Stated Complaint: ANKLE PAIN, SWELLING,BLOOD PRESSURE PROBLEMS Time Seen by Provider: 02/16/17 13:11 Notes: Patient is a 41 year old female with a history of HTN presents to the emergency department complaining of knee pain, swelling in her ankles and high blood pressure. Patient states that the pain is severe and that she would wake up every 4 hours. Patient states the pain in her right knee is worse than the pain in her left knee. Patient also states that she has been trying to manage her high blood pressure with diet change and exercise. (HARINI EATON) Pain and swelling has been going on for several weeks and elevated blood pressure has been going on for several months. (FROYLAN HARRIS) - Related Data Allergies/Adverse Reactions: No Known Allergies Allergy (Unverified 06/20/16 09:10) Past Medical History - General Information source: Patient - Social History Smoking Status: Current Every Day Smoker Frequency of alcohol use: None Drug Abuse: Heroin, Methamphetamine Family History: Reviewed & Not Pertinent Patient has suicidal ideation: No Patient has homicidal ideation: No - Past Medical History Cardiac Medical History: Denies: Hx Congestive Heart Failure, Hx DVT, Hx Heart Attack, Hx Hypercholesterolemia, Hx Pulmonary Embolism Pulmonary Medical History: Denies: Hx Asthma, Hx COPD, Hx Sleep Apnea Neurological Medical History: Denies: Hx Seizures Endocrine Medical History: Denies: Hx Diabetes Mellitus Type 1, Hx Diabetes Mellitus Type 2, Hx Hyperthyroidism, Hx Hypothyroidism Renal/ Medical History: Reports: Hx Kidney Stones. Denies: Hx Peritoneal Dialysis GI Medical History: Denies: Hx Cirrhosis, Hx Gastroesophageal Reflux Disease, Hx Hepatitis Psychiatric Medical History: Denies: Hx Depression Infectious Medical History: Denies: Hx C-Diff, Hx Hepatitis, Hx MRSA Past Surgical History: Reports: Hx Cholecystectomy, Hx Tonsillectomy - Adenoids , Hx Tubal Ligation - Immunizations Hx Diphtheria, Pertussis, Tetanus Vaccination: Yes <FROYLAN HARRIS - Last Filed: 02/16/17 18:58> Review of Systems - Review of Systems Constitutional: No symptoms reported EENT: No symptoms reported Cardiovascular: No symptoms reported Respiratory: No symptoms reported Gastrointestinal: No symptoms reported Genitourinary: No symptoms reported Female Genitourinary: No symptoms reported Musculoskeletal: Ankle swelling, Other - Knee Pain Skin: No symptoms reported Hematologic/Lymphatic: No symptoms reported Neurological/Psychological: No symptoms reported -: Yes All other systems reviewed and negative <UMAHARINI DIANA - Last Filed: 02/16/17 16:31> Physical Exam <UMASONJASTEPHY - Last Filed: 02/16/17 16:31> <FROYLAN HARRIS - Last Filed: 02/16/17 18:58> - Vital signs Vitals: Temp Pulse Resp BP Pulse Ox 98.4 F 122 H 20 167/89 H 100 02/16/17 12:48 02/16/17 12:48 02/16/17 12:48 02/16/17 12:48 02/16/17 12:48 - Notes Notes: GENERAL: Alert, interacts well. No acute distress. HEAD: Normocephalic, atraumatic. EYES: Pupils equal, round, and reactive to light. Extraocular movements intact. ENT: Oral mucosa moist, tongue midline. NECK: Full range of motion. Supple. Trachea midline. LUNGS: Clear to auscultation bilaterally, no wheezes, rales, or rhonchi. No respiratory distress. HEART: Regular rate and rhythm. No murmurs, gallops, or rubs. ABDOMEN: Soft, non-tender. Non-distended. Bowel sounds present in all 4 quadrants. EXTREMITIES: Moves all 4 extremities spontaneously. Trace edema in bilateral ankles. Tender to palpation on leg and ankle bilaterally. Radial and dorsalis pedis pulses 2/4 bilaterally. No cyanosis. NEUROLOGICAL: Alert and oriented x3. Normal speech. Biceps and patellar DTRs 2+ bilaterally. PSYCH: Normal affect, normal mood. SKIN: Warm, dry, normal turgor. No rashes or lesions noted. (UMASONJASTEPHY) Course - Laboratory Result Diagrams: 02/16/17 14:08 02/16/17 14:08 <UMASONJASTEPHY - Last Filed: 02/16/17 16:31> - Laboratory Result Diagrams: 02/16/17 14:08 02/16/17 14:08 <FROYLAN HARRIS - Last Filed: 02/16/17 18:58> - Re-evaluation Re-evalutation: 02/16/17 15:42 CBC unremarkable, CMP grossly unremarkable with the exception of a very slightly elevated alkaline phosphatase at 323, presentation not consistent with bone cancer and this alkaline phosphatase is not high enough to really concern me for bone cancer. Urinalysis shows trace leukocyte esterase, no protein, no evidence of renal failure, chest x-ray is unremarkable, hepatitis panel was ordered from triage, this is a send out lab and will not be back for at least 3 days. Discussed with patient that given her trace edema as well as her hypertension a one-week course of Lasix is reasonable however given the electrolyte abnormalities that he can call she will need follow-up as an outpatient with a primary care physician, patient does not currently have primary care coverage so she will be referred to Dr. Vera Leyva for an ER follow-up appointment. Patient's vague pains to light touch across her legs and feet will be treated with Toradol at this time, recommend to use acetaminophen at home. Discharged home. No evidence of hypertensive emergency or endorgan damage. 02/16/17 15:43 No evidence of DVT, no suspicion for pulmonary embolism, no shortness of breath and no chest pain. (FROYLAN HARRIS) - Vital Signs Vital signs: Temp Pulse Resp BP Pulse Ox 98.0 F 96 20 136/89 H 100 02/16/17 16:55 02/16/17 16:55 02/16/17 12:48 02/16/17 16:55 02/16/17 16:55 - Laboratory Laboratory results interpreted by me: 02/16/17 02/16/17 02/16/17 14:08 14:08 14:08 RDW 16.1 H Alkaline Phosphatase 323 H Ur Leukocyte Esterase TRACE H - EKG Interpretation by Me Additional EKG results interpreted by me: 02/16/17 15:43 EKG shows sinus tachycardia at a rate of 106, normal axis, normal intervals, no ST segment elevations or depressions, no T-wave inversions per my interpretation. (FROYLAN HARRIS) Discharge <HARINI EATON - Last Filed: 02/16/17 16:31> <FROYLAN HARRIS - Last Filed: 02/16/17 18:58> - Discharge Clinical Impression: Peripheral edema Hypertension Qualifiers: Hypertension type: essential hypertension Qualified Code(s): I10 - Essential ( primary) hypertension Condition: Stable Disposition: HOME, SELF-CARE Additional Instructions: Today we did not see any signs of kidney damage. Your hepatitis screen results will not be back for several days we will have to call you with these results. I started you on a 7 day course of Lasix, this will help to decrease your swelling and decrease her blood pressure. Please take it as directed once a day. Please wear compression stockings. Please follow-up with Dr. Leyva, the on-call internal medicine physician as an outpatient. Prescriptions: Furosemide [Lasix 20 mg Tablet] 20 mg PO QAM #7 tablet Referrals: VERA LEYVA MD [ACTIVE STAFF] - Follow up in 1 week Scribe Attestation: 02/16/17 18:58 I personally performed the services described in the documentation, reviewed and edited the documentation which was dictated to the scribe in my presence, and it accurately records my words and actions. (FROYLAN HARRIS) Scribe Documentation - Scribe Written by Liliane:: Liliane Cano, 02/16/2017 16:31 acting as scribe for :: Gabriel <HARINI EATON - Last Filed: 02/16/17 16:31>
[2017-02-16 16:55] VITALS: BP 136/89
--- NOTE | 2017-02-17 09:10 | EKG REPORT ---
SEVERITY:- OTHERWISE NORMAL ECG - SINUS TACHYCARDIA : Confirmed by: Faustino Wolfe 17-Feb-2017 09:09:32
== END 2017-02-16 16:51 | disposition home or self-care (01) ==
LOC: ER 12:43
DX: R60.0 Localized edema (principal); I10 Essential (primary) hypertension; M25.561 Pain in right knee; M25.562 Pain in left knee; M79.89 Other specified soft tissue disorders; F17.200 Nicotine dependence, unspecified, uncomplicated
CPT/HCPCS: 93005; 99284; 96361; 96374; 36415; 82553; 82550; 85025; 80053; 81001; 84484; 86704; 86705; 86706; 86707; 86803; 87340; 87350; 71020; 93010; J1885; J3490; J7030

== ENCOUNTER 2017-06-02 01:28 | Emergency (ER) | payer MEDICAID ==
--- NOTE | 2017-06-02 02:05 | ER Document Report ---
ED Cardiac - General Chief Complaint: Palpitations Stated Complaint: SHOULDER PAIN Time Seen by Provider: 06/02/17 01:47 Mode of Arrival: Ambulatory Information source: Patient TRAVEL OUTSIDE OF THE [place] IN LAST 30 DAYS: No - HPI Patient complains to provider of: Palpitations Severity now: Moderate Notes: Patient is here with complaints of feet swelling and palpitations. She states that she has had intermittent feet swelling for the last few weeks. It seems to be worse over the last few days and is going to the point where she is having trouble walking due to pain. She denies any injuries. She denies any fever or redness. She does report having a history of some kidney disease. She denies any history of congestive heart failure. She has a history of hypertension. She denies a history of diabetes, CAD, drug use. She has family history of CAD and is a smoker. States that for the last week she is also been developing palpitations seem to occur when she lies flat. Tonight she had some while laying down. She also developed some left shoulder and arm pain. She denies any actual chest pain or shortness of breath. She denies any recent long trips or surgeries, calf swelling, hormone use, cancer, history of DVT or PE. She denies any fever or cough. She denies any abdominal pain. She denies any nausea, vomiting, diarrhea. She has no other complaints at this time. - Related Data Allergies/Adverse Reactions: No Known Allergies Allergy (Verified 06/02/17 02:21) Past Medical History - Social History Smoking Status: Unknown if Ever Smoked Family History: Reviewed & Not Pertinent - Past Medical History Cardiac Medical History: Denies: Hx Congestive Heart Failure, Hx DVT, Hx Heart Attack, Hx Hypercholesterolemia, Hx Pulmonary Embolism Pulmonary Medical History: Denies: Hx Asthma, Hx COPD, Hx Sleep Apnea Neurological Medical History: Denies: Hx Seizures Endocrine Medical History: Denies: Hx Diabetes Mellitus Type 1, Hx Diabetes Mellitus Type 2, Hx Hyperthyroidism, Hx Hypothyroidism Renal/ Medical History: Reports: Hx Kidney Stones. Denies: Hx Peritoneal Dialysis GI Medical History: Denies: Hx Cirrhosis, Hx Gastroesophageal Reflux Disease, Hx Hepatitis Psychiatric Medical History: Denies: Hx Depression Infectious Medical History: Denies: Hx C-Diff, Hx Hepatitis, Hx MRSA Past Surgical History: Reports: Hx Cholecystectomy, Hx Tonsillectomy - Adenoids , Hx Tubal Ligation - Immunizations Hx Diphtheria, Pertussis, Tetanus Vaccination: Yes Review of Systems - Review of Systems -: Yes All other systems reviewed and negative Physical Exam - Vital signs Vitals: Temp Pulse Resp BP Pulse Ox 99.2 F 116 H 20 136/82 H 100 06/02/17 01:41 06/02/17 01:41 06/02/17 01:41 06/02/17 01:41 06/02/17 01:41 - Notes Notes: GENERAL: alert, cooperative, nontoxic, no distress. HEAD: normocephalic, atraumatic EYES: conjunctiva pink without discharge, no external redness or swelling. EARS: no external swelling, no external redness NOSE: atraumatic, no external swelling MOUTH/THROAT: mucous membranes moist and pink, posterior pharynx without erythema, swelling, exudate. No trismus or drooling. NECK: soft, supple, full range of motion, no meningismus. CHEST: no distress, lungs clear and equal throughout. No wheezing, rales, rhonchi. CARDIAC: regular rate, tachycardia, no murmur, normal capillary refill, normal pulses. No peripheral edema noted. ABDOMEN: Soft, nontender. BACK: full range of motion, no CVA tenderness. EXTREMITIES: full range of motion of all extremities. Nonpitting edema noted to the bilateral feet. No redness. Normal pulse and sensation distally. The feet are tender to palpation. No pitting edema of the legs. No calf tenderness or swelling. No redness. Muscle spasm and tenderness to the left trapezius muscle. No redness or swelling to the left shoulder. Full range of motion of the left shoulder. NEURO: alert and oriented x 3, no focal deficits, full range of motion of all extremities. PYSCH: appropriate mood, affect. Patient is cooperative. SKIN: pink, warm, dry, no rash. Course - Re-evaluation Re-evalutation: 06/02/17 04:26 The patient is nontoxic appearing with stable vitals. Patient has been having palpitations and left shoulder pain with bilateral feet swelling for the last several weeks. She is noted to have muscle spasm and tenderness to left trapezius muscle. Shoulder exam is benign there was no injury. EKG shows a sinus tachycardia which she has had in the past. Chest x-ray shows no acute abnormality. Lab work including magnesium, TSH, troponin, CMP and CBC showed no significant acute abnormalities. Is noted to have a mild elevation in her LFTs, and reviewing her prior records, this is consistent with prior levels. She has no abdominal tenderness on exam. This point he cannot exactly explain the feelings of palpitations that she has been having or the exact source of her feet swelling. She will be discharged home with Bonilla Strange for her left trapezius muscle spasm and a small supply of Ultram. She is instructed to follow-up with her primary care doctor at the next available appointment for further evaluation and management of her feet swelling and pain. There is no signs of infection at this time. Patient verbalized understanding of this. The patient is noted to have elevated blood pressure during today's emergency department visit. The patient was informed of this finding. The patient was instructed that this may be related to pre-hypertension and requires further evaluation with a primary care provider. The patient has no hypertensive symptoms at this time. The patient's emergency department workup and current diagnosis were explained to the patient and or family. Follow-up instructions were provided. Medications if prescribed were discussed. Instructions for when to return to the emergency department including specific worrisome symptoms were discussed with the patient and/or family. - Vital Signs Vital signs: Temp Pulse Resp BP Pulse Ox 99.2 F 116 H 17 113/47 L 97 06/02/17 01:41 06/02/17 01:41 06/02/17 04:01 06/02/17 04:01 06/02/17 04:01 - Laboratory Result Diagrams: 06/02/17 02:05 06/02/17 02:05 Laboratory results interpreted by me: 06/02/17 06/02/17 02:05 02:05 Hgb 11.7 L Hct 35.6 L RDW 16.0 H Chloride 110 H AST 11 L Alkaline Phosphatase 236 H - Diagnostic Test Radiology reviewed: Image reviewed, Reports reviewed - Chest x-ray with no acute abnormality. - EKG Interpretation by [place] EKG shows normal: [place], Intervals, QRS Complexes, ST-T Waves Rate: Tachycardia When compared to previous EKG there are: No significant change Discharge - Discharge Clinical Impression: Palpitations, Trapezius muscle spasm, Bilateral swelling of feet Condition: Stable Disposition: HOME, SELF-CARE Instructions: Benzodiazepines ([facility]), Palpitations (Irregular or Rapid Heartrate ) ([facility]) Additional Instructions: Take medications as prescribed. Drink plenty of fluids. Get established with a primary care doctor at the next available appointment. Follow-up sooner for increased pain, fever, redness, numbness, tingling, weakness, any further concerns. Your blood pressure was elevated during today's visit. Have this rechecked with your doctor. The medication you were prescribed today may cause drowsiness. Do not drive or operate heavy machinery while taking this medication. Prescriptions: Tramadol HCl [Ultram 50 mg Tablet] 50 mg PO Q6HP PRN #12 tablet PRN Reason: Diazepam [Valium 5 mg Tablet] 5 mg PO QIDP PRN #15 tablet PRN Reason: Diclofenac Sodium [Voltaren 50 Mg Tablet.] 50 mg PO BID #20 tablet. Forms: Elevated Blood Pressure, Smoking Cessation Education Referrals: [facility] [Provider Group] - Follow up as needed
[2017-06-02 02:21] LABS: ABSOLUTE BASOPHILS # (AUTO) 0.1 10^3/uL (0.0-0.2); ABSOLUTE EOSINOPHILS # (AUTO) 0.3 10^3/uL (0.0-0.6); ABSOLUTE LYMPHOCYTES (AUTO) 2.2 10^3/uL (0.5-4.7); ABSOLUTE MONOCYTES (AUTO) 0.5 10^3/uL (0.1-1.4); ABSOLUTE NEUT (AUTO) 5.4 10^3/uL (1.7-8.2); BASOPHILS % (AUTO) 0.7 % (0-2); EOSINOPHILS % (AUTO) 3.9 % (0-6); HEMATOCRIT 35.6 % (36.0-47.0); HEMOGLOBIN 11.7 g/dL (12.0-15.5); LYMPHOCYTES % (AUTO) 26.1 % (13-45); MEAN CORPUSCULAR HEMOGLOBIN 27.8 pg (27.0-33.4); MEAN CORPUSCULAR HGB CONC 32.9 g/dL (32.0-36.0); MEAN CORPUSCULAR VOLUME 85 fl (80-97); MONOCYTES % (AUTO) 6.4 % (3-13); PLATELET COUNT 394 10^3/uL (150-450); RED BLOOD COUNT 4.21 10^6/uL (3.72-5.28); SEGMENTED NEUTROPHILS % (AUTO) 62.9 % (42-78); TOTAL CELLS COUNTED % (AUTO) 100 %; WHITE BLOOD COUNT 8.6 10^3/uL (4.0-10.5)
[2017-06-02 02:45] LABS: APPEARANCE,URINE CLEAR; BILIRUBIN,URINE NEGATIVE (NEGATIVE); COLOR,URINE STRAW; GLUCOSE, URINE NEGATIVE (NEGATIVE); KETONES,URINE NEGATIVE (NEGATIVE); LEUKOCYTE ESTERASE,URINE NEGATIVE (NEGATIVE); NITRITE,URINE NEGATIVE (NEGATIVE); PROTEIN,URINE NEGATIVE (NEGATIVE); URINE SPECIFIC GRAVITY 1.009; UROBILINOGEN,URINE NEGATIVE mg/dL (<2.0)
[2017-06-02 02:52] LABS: URINE AMPHETAMINES SCREEN NEGATIVE; URINE BARBITURATES SCREEN NEGATIVE; URINE BENZODIAZEPINES SCREEN NEGATIVE; URINE COCAINE SCREEN NEGATIVE; URINE MARIJUANA (THC) SCREEN NEGATIVE; URINE METHADONE SCREEN NEGATIVE; URINE PHENCYCLIDINE SCREEN NEGATIVE
[2017-06-02 02:54] LABS: ALANINE AMINOTRANSFERASE 17 U/L (9-52); ALBUMIN 3.9 g/dL (3.5-5.0); ALKALINE PHOSPHATASE 236 U/L (38-126); ANION GAP 10 (5-19); ASPARTATE AMINO TRANSFERASE 11 U/L (14-36); BILIRUBIN,DIRECT 0.2 mg/dL (0.0-0.4); BILIRUBIN,TOTAL 0.2 mg/dL (0.2-1.3); BLOOD UREA NITROGEN 14 mg/dL (7-20); CALCIUM 9.2 mg/dL (8.4-10.2); CARBON DIOXIDE 22 mmol/L (22-30); CHLORIDE 110 mmol/L (98-107); GLUCOSE 108 mg/dL (75-110); POTASSIUM 4.1 mmol/L (3.6-5.0); SODIUM 142.4 mmol/L (137-145); TOTAL PROTEIN 6.5 g/dL (6.3-8.2)
--- NOTE | 2017-06-02 03:00 | RADIOLOGY REPORT (SQ) ---
EXAM DESCRIPTION: CHEST SINGLE VIEW CLINICAL HISTORY: 41 years Female, PALPITATIONS COMPARISON: 02/16/17 NUMBER OF VIEWS/TECHNIQUE: 1/AP LIMITATIONS: None. FINDINGS: Normal lung volume, clear parenchyma, normal cardiac silhouette, and intact bony thorax. IMPRESSION: No acute cardiopulmonary findings.
[2017-06-02 03:13] LABS: NT PRO BNP 37 pg/mL (<125)
[2017-06-02 03:16] LABS: TROPONIN I < 0.012 ng/mL
[2017-06-02] MEDS ORDERED: DIAZEPAM 5 MG TABLET PO ONE (04:25)
[2017-06-02] MEDS ORDERED: KETOROLAC TROMETHAMINE INJ/PF 30 MG/1 ML SDV IM ONE (04:25)
[2017-06-02 04:58] VITALS: BP 120/75
--- NOTE | 2017-06-02 06:22 | EKG REPORT ---
SEVERITY:- OTHERWISE NORMAL ECG - SINUS TACHYCARDIA : Confirmed by: Jesus Mitchell MD 02-Jun-2017 06:22:22
== END 2017-06-02 04:58 | disposition home or self-care (01) ==
LOC: ER 01:28
DX: R00.2 Palpitations (principal); M62.830 Muscle spasm of back; M79.89 Other specified soft tissue disorders; R00.0 Tachycardia, unspecified; R79.89 Other specified abnormal findings of blood chemistry; I10 Essential (primary) hypertension; M25.512 Pain in left shoulder; M79.602 Pain in left arm; Z82.49 Family history of ischemic heart disease and other diseases of the circulatory system
CPT/HCPCS: 93005; 99285; 96372; 36415; 83735; 84443; 85025; 80053; 81001; 84484; 80307; 83880; 71045; 93010; J3490; J1885

== ENCOUNTER 2017-09-09 21:08 | Emergency (ER) | payer SELFPAY ==
[2017-09-09 21:42] VITALS: BP 149/90
[2017-09-09 22:26] LABS: ABSOLUTE EOSINOPHILS # (AUTO) 0.1 10^3/uL (0.0-0.6); ABSOLUTE LYMPHOCYTES (AUTO) 1.4 10^3/uL (0.5-4.7); ABSOLUTE MONOCYTES (AUTO) 0.4 10^3/uL (0.1-1.4); ABSOLUTE NEUT (AUTO) 6.5 10^3/uL (1.7-8.2); BASOPHILS % (AUTO) 0.4 % (0-2); EOSINOPHILS % (AUTO) 1.1 % (0-6); HEMATOCRIT 38.7 % (36.0-47.0); HEMOGLOBIN 12.7 g/dL (12.0-15.5); LYMPHOCYTES % (AUTO) 16.9 % (13-45); MEAN CORPUSCULAR HEMOGLOBIN 28.1 pg (27.0-33.4); MEAN CORPUSCULAR HGB CONC 32.9 g/dL (32.0-36.0); MEAN CORPUSCULAR VOLUME 85 fl (80-97); MONOCYTES % (AUTO) 4.5 % (3-13); PLATELET COUNT 393 10^3/uL (150-450); RED BLOOD COUNT 4.53 10^6/uL (3.72-5.28); RED CELL DISTRIBUTION WIDTH 17.6 % (11.5-14.0); SEGMENTED NEUTROPHILS % (AUTO) 77.1 % (42-78); TOTAL CELLS COUNTED % (AUTO) 100 %; WHITE BLOOD COUNT 8.5 10^3/uL (4.0-10.5)
[2017-09-09 22:30] LABS: APPEARANCE,URINE CLOUDY; BILIRUBIN,URINE NEGATIVE (NEGATIVE); COLOR,URINE YELLOW; GLUCOSE, URINE NEGATIVE (NEGATIVE); KETONES,URINE NEGATIVE (NEGATIVE); LEUKOCYTE ESTERASE,URINE MODERATE (NEGATIVE); NITRITE,URINE NEGATIVE (NEGATIVE); PROTEIN,URINE NEGATIVE (NEGATIVE); URINE SPECIFIC GRAVITY 1.013
[2017-09-09 22:53] LABS: ALANINE AMINOTRANSFERASE 22 U/L (9-52); ALBUMIN 4.5 g/dL (3.5-5.0); ALKALINE PHOSPHATASE 300 U/L (38-126); ANION GAP 14 (5-19); ASPARTATE AMINO TRANSFERASE 20 U/L (14-36); BILIRUBIN,DIRECT 0.2 mg/dL (0.0-0.4); BILIRUBIN,TOTAL 0.4 mg/dL (0.2-1.3); BLOOD UREA NITROGEN 8 mg/dL (7-20); CALCIUM 9.4 mg/dL (8.4-10.2); CARBON DIOXIDE 23 mmol/L (22-30); CHLORIDE 107 mmol/L (98-107); GLUCOSE 105 mg/dL (75-110); POTASSIUM 4.5 mmol/L (3.6-5.0); SODIUM 143.8 mmol/L (137-145); TOTAL PROTEIN 7.5 g/dL (6.3-8.2)
--- NOTE | 2017-09-09 23:24 | ER Document Report ---
HPI - HPI Pain Level: 3 Context: Patient is a 41-year-old female presents emergency department with [facility] with a chief complaint of nausea, dizziness after she was found huffing paint. Patient states that she developed the symptoms as soon as the melting supervisor arrived. She states that she has a history of PTSD and associated anxiety and she feels that that may have been the reason that she developed nausea. She denies any emesis. She also states that she is not sure if she passed out or fell over. She states that she denies any LOC but since she was having pain she cannot be sure. She denies any headache, dizziness, confusion, vision changes, weakness, extremity numbness or tingling at this time. - REPRODUCTIVE Reproductive: DENIES: : Past Medical History - Social History Smoking Status: Current Every Day Smoker Family History: Reviewed & Not Pertinent - Past Medical History Cardiac Medical History: Reports: Hx Hypertension Denies: Hx Congestive Heart Failure, Hx DVT, Hx Heart Attack, Hx Hypercholesterolemia, Hx Pulmonary Embolism Pulmonary Medical History: Denies: Hx Asthma, Hx COPD, Hx Sleep Apnea Neurological Medical History: Denies: Hx Seizures Endocrine Medical History: Denies: Hx Diabetes Mellitus Type 1, Hx Diabetes Mellitus Type 2, Hx Hyperthyroidism, Hx Hypothyroidism Renal/ Medical History: Reports: Hx Kidney Stones. Denies: Hx Peritoneal Dialysis GI Medical History: Denies: Hx Cirrhosis, Hx Gastroesophageal Reflux Disease, Hx Hepatitis Psychiatric Medical History: Denies: Hx Depression Infectious Medical History: Denies: Hx C-Diff, Hx Hepatitis, Hx MRSA Past Surgical History: Reports: Hx Cholecystectomy, Hx Tonsillectomy - Adenoids , Hx Tubal Ligation - Immunizations Hx Diphtheria, Pertussis, Tetanus Vaccination: Yes Vertical Provider Document - CONSTITUTIONAL Agree With Documented VS: Yes Notes: PHYSICAL EXAM GENERAL: Alert, interacts well. HEAD: Normocephalic, atraumatic. EYES: Pupils equal, round, and reactive to light. Extraocular movements intact. ENT: Oral mucosa moist, tongue midline. NECK: Full range of motion. Supple. Trachea midline. LUNGS: Clear to auscultation bilaterally, no wheezes, rales, or rhonchi. No respiratory distress. HEART: Regular rate and rhythm. No murmurs, gallops, or rubs. ABDOMEN: Soft, nondistended, nontender. No guarding, rebound, or rigidity.. Bowel sounds present in all 4 quadrants. EXTREMITIES: Moves all 4 extremities spontaneously. No edema, radial and dorsalis pedis pulses 2/4 bilaterally. No cyanosis. NEUROLOGICAL: Alert and oriented x4. Normal speech. PSYCH: Normal affect, normal mood. SKIN: Warm, dry, normal turgor. No rashes or lesions noted. - INFECTION CONTROL TRAVEL OUTSIDE OF THE [place] IN LAST 30 DAYS: No Course - Re-evaluation Re-evalutation: 09/10/17 01:35 Patient presents with multiple vague complaints that did not appear to be concerning for any acute life-threatening pathology. Vitals are within normal limits at triage and at time of discharge. Physical examination is unremarkable. Patient has tolerated oral intake without difficulty. Patient was not noted to be in distress at any point during their ER visit. At this time, based on the reassuring evaluation, I do not suspect an acute MS, pulmonary embolus, aortic dissection, acute intra-abdominal pathology, stroke, or sepsis.Will discharge with return precautions and follow-up recommendations. Verbal discharge instructions given a the bedside and opportunity for questions given. Medication warnings reviewed. Patient is in agreement with this plan and has verbalized understanding of return precautions and the need for primary care follow-up in the next 24-72 hours. - Vital Signs Vital signs: Temp Pulse Resp BP Pulse Ox 98.2 F 97 20 149/90 H 100 09/09/17 21:33 09/09/17 21:33 09/09/17 21:33 09/09/17 21:33 09/09/17 21:33 - Laboratory Result Diagrams: 09/09/17 21:50 09/09/17 21:50 Laboratory results interpreted by me: 09/09/17 09/09/17 09/09/17 21:50 21:50 21:50 RDW 17.6 H Alkaline Phosphatase 300 H Urine Urobilinogen 2.0 H Ur Leukocyte Esterase MODERATE H Discharge - Discharge Clinical Impression: Nausea & vomiting Qualifiers: Vomiting type: unspecified Vomiting Intractability: intractable Qualified Code( s): R11.2 - Nausea with vomiting, unspecified Condition: Good Disposition: HOME, SELF-CARE Instructions: Vomiting ([facility]) Referrals: BINTA LARSON MD [ACTIVE STAFF] - Follow up in 1 week
== END 2017-09-09 23:29 | disposition home or self-care (01) ==
LOC: ER 21:08
DX: R11.2 Nausea with vomiting, unspecified (principal); R42 Dizziness and giddiness; F17.200 Nicotine dependence, unspecified, uncomplicated; I10 Essential (primary) hypertension; Z87.442 Personal history of urinary calculi; Z90.49 Acquired absence of other specified parts of digestive tract
CPT/HCPCS: 36415; 80053; 81001; 85025; 87086; 99283

== ENCOUNTER 2017-12-25 19:51 | Emergency (ER) | payer SELFPAY ==
[2017-12-25] MEDS ORDERED: BENZTROPINE MESYLATE INJ 2 MG/2 ML AMPULE IM STA (21:13)
[2017-12-25 21:23] LABS: ABSOLUTE EOSINOPHILS # (AUTO) 0.1 10^3/uL (0.0-0.6); ABSOLUTE LYMPHOCYTES (AUTO) 2.3 10^3/uL (0.5-4.7); ABSOLUTE MONOCYTES (AUTO) 0.5 10^3/uL (0.1-1.4); ABSOLUTE NEUT (AUTO) 4.9 10^3/uL (1.7-8.2); BASOPHILS % (AUTO) 0.4 % (0-2); EOSINOPHILS % (AUTO) 1.9 % (0-6); HEMATOCRIT 38.8 % (36.0-47.0); HEMOGLOBIN 12.9 g/dL (12.0-15.5); LYMPHOCYTES % (AUTO) 29.3 % (13-45); MEAN CORPUSCULAR HEMOGLOBIN 29.3 pg (27.0-33.4); MEAN CORPUSCULAR HGB CONC 33.2 g/dL (32.0-36.0); MEAN CORPUSCULAR VOLUME 88 fl (80-97); MONOCYTES % (AUTO) 6.4 % (3-13); PLATELET COUNT 376 10^3/uL (150-450); RED CELL DISTRIBUTION WIDTH 17.9 % (11.5-14.0); TOTAL CELLS COUNTED % (AUTO) 100 %; WHITE BLOOD COUNT 7.9 10^3/uL (4.0-10.5)
[2017-12-25 21:38] LABS: ALANINE AMINOTRANSFERASE 19 U/L (9-52); ALBUMIN 4.4 g/dL (3.5-5.0); ALKALINE PHOSPHATASE 306 U/L (38-126); ANION GAP 12 (5-19); ASPARTATE AMINO TRANSFERASE 19 U/L (14-36); BILIRUBIN,DIRECT 0.2 mg/dL (0.0-0.4); BILIRUBIN,TOTAL 0.7 mg/dL (0.2-1.3); BLOOD UREA NITROGEN 8 mg/dL (7-20); CALCIUM 8.8 mg/dL (8.4-10.2); CARBON DIOXIDE 22 mmol/L (22-30); CHLORIDE 108 mmol/L (98-107); GLUCOSE 107 mg/dL (75-110); POTASSIUM 3.3 mmol/L (3.6-5.0); SODIUM 141.6 mmol/L (137-145); TOTAL PROTEIN 7.7 g/dL (6.3-8.2)
[2017-12-25 21:44] LABS: APPEARANCE,URINE CLEAR; BILIRUBIN,URINE NEGATIVE (NEGATIVE); COLOR,URINE YELLOW; GLUCOSE, URINE NEGATIVE (NEGATIVE); KETONES,URINE NEGATIVE (NEGATIVE); LEUKOCYTE ESTERASE,URINE NEGATIVE (NEGATIVE); NITRITE,URINE NEGATIVE (NEGATIVE); PROTEIN,URINE NEGATIVE (NEGATIVE); UROBILINOGEN,URINE NEGATIVE mg/dL (<2.0)
[2017-12-25] MEDS ORDERED: KETOROLAC TROMETHAMINE 60 MG/2 ML SDV IM ONE (22:10)
--- NOTE | 2017-12-25 22:11 | ER Document Report ---
ED General - General Chief Complaint: Drug Abuse Stated Complaint: HEADACHE Time Seen by Provider: 12/25/17 21:12 Notes: Patient is a 42-year-old female that presents to the emergency department for chief complaint of syncope and head injury. Patient states that she was huffing aerosols, and she passed out and she hit her head. She states this occurred about 1 hour prior to ED arrival. She has been having some discomfort in her neck, and felt that it was difficult to turn her neck. She described this as a 4 out of 10 dull ache. And felt the pain radiated to her shoulder. Denies having any numbness, tingling or weakness in her arms or legs. Denied any headache, lightheadedness, dizziness. EMS was called and that so she is brought to the emergency department. She has been doing this for about 18 months now on a regular basis. She formally used methamphetamines. Past Medical History: Illicit drug use, frequent UTIs Past Surgical History: Tubal ligation, cholecystectomy, tonsillectomy Social History: Admits to smoking cigarettes, denies alcohol use, admits to huffing aerosols, and prior methamphetamine abuse Family History: Reviewed and noncontributory for presenting illness Allergies: Reviewed, see documented allergy list. REVIEW OF SYSTEMS: Unless otherwise stated in this report the patient's positive and negative responses for review of systems for constitutional, eyes, ENT, cardiovascular, respiratory, gastrointestinal, neurological, genitourinary, musculoskeletal, and integumentary systems and related systems to the presenting problem are either as stated in the HPI or were not pertinent or were negative for the symptoms and/or complaints related to the presenting medical problem. PHYSICAL EXAMINATION: Vital signs reviewed, nursing noted reviewed. GENERAL: Well-appearing, well-nourished and in no acute distress. HEAD: Atraumatic, normocephalic. EYES: Eyes appear normal, extraocular movements intact, sclera anicteric, conjunctiva are normal. ENT: nares patent, oropharynx clear without exudates. Moist mucous membranes. NECK: Patient has paraspinal tenderness of the cervical spine, no lymphadenopathy, range of motion was not performed, patient was placed in a cervical collar. LUNGS: Breath sounds clear to auscultation bilaterally and equal. No wheezes rales or rhonchi. HEART: Regular rate and rhythm without murmurs ABDOMEN: Soft, nontender, normoactive bowel sounds. No rebound, guarding, or rigidity. No masses appreciated. EXTREMITIES: Nontender, good range of motion, no pitting or edema. NEUROLOGICAL: No focal neurological deficits. Moves all extremities spontaneously Motor and sensory grossly intact on exam. Muscular motor strength +5/5 distally in all extremities, sensation grossly intact and equal bilaterally. PSYCH: Appears anxious, but appropriate SKIN: Warm, Dry, normal turgor, no rashes or lesions noted on exposed skin TRAVEL OUTSIDE OF THE [place] IN LAST 30 DAYS: No - Related Data Allergies/Adverse Reactions: No Known Allergies Allergy (Verified 06/02/17 02:21) Past Medical History - Social History Smoking Status: Current Every Day Smoker Chew tobacco use (# tins/day): No Frequency of alcohol use: Rare Drug Abuse: Cocaine, Methamphetamine, Other Family History: Reviewed & Not Pertinent Patient has suicidal ideation: No Patient has homicidal ideation: No - Past Medical History Cardiac Medical History: Reports: Hx Hypertension Denies: Hx Congestive Heart Failure, Hx DVT, Hx Heart Attack, Hx Hypercholesterolemia, Hx Pulmonary Embolism Pulmonary Medical History: Denies: Hx Asthma, Hx COPD, Hx Sleep Apnea Neurological Medical History: Denies: Hx Seizures Endocrine Medical History: Denies: Hx Diabetes Mellitus Type 1, Hx Diabetes Mellitus Type 2, Hx Hyperthyroidism, Hx Hypothyroidism Renal/ Medical History: Reports: Hx Kidney Stones. Denies: Hx Peritoneal Dialysis GI Medical History: Denies: Hx Cirrhosis, Hx Gastroesophageal Reflux Disease, Hx Hepatitis Psychiatric Medical History: Denies: Hx Depression Infectious Medical History: Denies: Hx C-Diff, Hx Hepatitis, Hx MRSA Past Surgical History: Reports: Hx Cholecystectomy, Hx Tonsillectomy - Adenoids , Hx Tubal Ligation - Immunizations Hx Diphtheria, Pertussis, Tetanus Vaccination: Yes Physical Exam - Vital signs Vitals: Temp Pulse Resp BP Pulse Ox 97.5 F 99 16 146/98 H 97 12/25/17 20:25 12/25/17 20:25 12/25/17 20:25 12/25/17 20:25 12/25/17 20:25 Course - Re-evaluation Re-evalutation: Patient seen and examined vital signs reviewed. Laboratory data and imaging were ordered as appropriate for the patient's presenting symptoms and complaint, with consideration of any critical or life threatening conditions that may be associated with their obtained history and exam as noted above. Patient was treated with benztropine, and Tylenol Results were reviewed when available and demonstrated cervical spine fracture to the C2 vertebral body through the lateral process, and vertebral foramina, this was discussed with the radiologist, patient was in a hard cervical collar, and CTA was ordered. This was discussed with the patient, that this was a serious situation she would any movement of her neck at this time. The patient was re-evaluated and was stable, neurologically intact Evaluation was most consistent with closed head injury, C2 vertebral body fracture Results of the patient's CT angiogram of her cervical spine were obtained there is narrowing of the vertebral artery, with a evidence of linear area concerning for possible dissection, only seen on one slice, discussed with the radiologist , possible dissection, this was relayed to [facility], trauma and neurosurgery, recommended transferring the patient, and they will reassess them , no recommendation for heparin at this time. Patient neurologically asymptomatic on reevaluation. Results were discussed with the patient at this point after careful consideration I feel that that patient should be transferred to [facility] due to acute cervical spine fracture, requiring neurosurgical evaluation. Dr. Micheal Nixon as accepting physician. This was discussed with the patient that it is in the best interest for their care to be transferred, the risks and benefits of transfer were discussed, including but not limited to clinical deterioration during transport, respiratory distress, and potential for traumatic injuries. Patient agreed with this plan of care. *Note is created using voice recognition software and may contain spelling, syntax or grammatical errors. Laboratory 12/25/17 12/25/17 12/25/17 19:40 19:40 21:18 WBC 7.9 RBC 4.40 Hgb 12.9 Hct 38.8 MCV 88 MCH 29.3 MCHC 33.2 RDW 17.9 H Plt Count 376 Seg Neutrophils % 62.0 Lymphocytes % 29.3 Monocytes % 6.4 Eosinophils % 1.9 Basophils % 0.4 Absolute Neutrophils 4.9 Absolute Lymphocytes 2.3 Absolute Monocytes 0.5 Absolute Eosinophils 0.1 Absolute Basophils 0.0 Sodium 141.6 Potassium 3.3 L Chloride 108 H Carbon Dioxide 22 Anion Gap 12 BUN 8 Creatinine 0.62 Est GFR ( Amer) > 60 Est GFR (Non-Af Amer) > 60 Glucose 107 Calcium 8.8 Total Bilirubin 0.7 Direct Bilirubin 0.2 Neonat Total Bilirubin Not Reportable Neonat Direct Bilirubin Not Reportable Neonat Indirect Bili Not Reportable AST 19 ALT 19 Alkaline Phosphatase 306 H Total Protein 7.7 Albumin 4.4 Urine Color YELLOW Urine Appearance CLEAR Urine pH 6.0 Ur Specific [place] 1.010 Urine Protein NEGATIVE Urine Glucose (UA) NEGATIVE Urine Ketones NEGATIVE Urine Blood NEGATIVE Urine Nitrite NEGATIVE Urine Bilirubin NEGATIVE Urine Urobilinogen NEGATIVE Ur Leukocyte Esterase NEGATIVE Urine WBC (Auto) 1 Urine RBC (Auto) 0 Squamous Epi Cells Auto 1 Urine Mucus (Auto) MOD Urine Ascorbic Acid NEGATIVE Urine HCG, Qual NEGATIVE Cervical Spine CT 12/25/17 21:12 IMPRESSION: 1. Acute fracture involving the body of C2 extending into the left lateral mass of C2 and into the transverse foramen, concerning for potential vascular injury. CT angiography is recommended. There is anterior subluxation of C1 on C2 as well as C2 on C3, concerning for ligamentous injury. MRI would also be helpful for further evaluation. 2. No acute intracranial abnormality. Emergent findings were discussed with Dr. Mccray at 2110 on 12/25/2017. Head CT 12/25/17 21:12 IMPRESSION: 1. Acute fracture involving the body of C2 extending into the left lateral mass of C2 and into the transverse foramen, concerning for potential vascular injury. CT angiography is recommended. There is anterior subluxation of C1 on C2 as well as C2 on C3, concerning for ligamentous injury. MRI would also be helpful for further evaluation. 2. No acute intracranial abnormality. Emergent findings were discussed with Dr. Mccray at 2110 on 12/25/2017. Cervical Spine CT 12/25/17 21:12 IMPRESSION: 1. Acute fracture involving the body of C2 extending into the left lateral mass of C2 and into the transverse foramen, concerning for potential vascular injury. CT angiography is recommended. There is anterior subluxation of C1 on C2 as well as C2 on C3, concerning for ligamentous injury. MRI would also be helpful for further evaluation. 2. No acute intracranial abnormality. Emergent findings were discussed with Dr. Mccray at 2110 on 12/25/2017. Head CT 12/25/17 21:12 IMPRESSION: 1. Acute fracture involving the body of C2 extending into the left lateral mass of C2 and into the transverse foramen, concerning for potential vascular injury. CT angiography is recommended. There is anterior subluxation of C1 on C2 as well as C2 on C3, concerning for ligamentous injury. MRI would also be helpful for further evaluation. 2. No acute intracranial abnormality. Emergent findings were discussed with Dr. Mccray at 2111 on 12/25/2017. Neck CTA 12/25/17 22:12 IMPRESSION: Markedly narrowed left vertebral artery within the left C2 transverse foramen concerning for focal injury at this level. Just distal to this site, there is a focal hypodense line through the artery which may represent either artifact versus focal dissection. MR angiography with axial fat saturated T1 sequence images is recommended to exclude dissection at this level. - Vital Signs Vital signs: Temp Pulse Resp BP Pulse Ox 97.5 F 78 16 118/74 97 12/25/17 20:25 12/25/17 23:00 12/25/17 23:00 12/25/17 23:00 12/25/17 23:00 - Laboratory Result Diagrams: 12/25/17 19:40 12/25/17 19:40 Laboratory results interpreted by me: 12/25/17 12/25/17 19:40 19:40 RDW 17.9 H Potassium 3.3 L Chloride 108 H Alkaline Phosphatase 306 H Discharge - Discharge Clinical Impression: Hypokalemia C2 cervical fracture Qualifiers: Encounter type: initial encounter Fracture type: closed Fracture morphology: other fracture Fracture alignment: nondisplaced Qualified Code(s): S12.191A - Other nondisplaced fracture of second cervical vertebra, initial encounter for closed fracture Cervical subluxation Qualifiers: Encounter type: initial encounter Qualified Code(s): S13.100A - Subluxation of unspecified cervical vertebrae, initial encounter Condition: Stable Disposition: [place]
--- NOTE | 2017-12-25 22:16 | RADIOLOGY REPORT (SQ) ---
CT HEAD WITHOUT IV CONTRAST, CT CERVICAL SPINE WITHOUT IV CONTRAST HISTORY: Closed head injury. COMPARISON: None. TECHNIQUE: CT scan of the brain. This exam was performed according to our departmental dose-optimization program, which includes automated exposure control, adjustment of the mA and/or kV according to patient size and/or use of iterative reconstruction technique. FINDINGS: BRAIN: The ventricles, cisterns, and sulci are age-appropriate. The turcios-white matter differentiation is preserved without evidence of acute infarction. No acute intracranial hemorrhage or extra-axial fluid collection is seen. No midline shift, mass effect, or hydrocephalus. No air-fluid levels are seen in the sinuses. The calvarium is intact. CERVICAL SPINE: Acute fracture involving the body of C2 extending into the left lateral mass of C2 and into the transverse foramen, concerning for potential vascular injury (axial image 20/69). CT angiography is recommended. There is anterior subluxation of C1 on C2 as well as C2 on C3. Query mild prevertebral soft tissue swelling. Facet dislocation remaining cervical vertebral body heights are preserved. Multilevel degenerative disc disease without gross canal stenosis. IMPRESSION: 1. Acute fracture involving the body of C2 extending into the left lateral mass of C2 and into the transverse foramen, concerning for potential vascular injury. CT angiography is recommended. There is anterior subluxation of C1 on C2 as well as C2 on C3, concerning for ligamentous injury. MRI would also be helpful for further evaluation. 2. No acute intracranial abnormality. Emergent findings were discussed with Dr. Mccray at 2111 on 12/25/2017.
[2017-12-25] MEDS ORDERED: ACETAMINOPHEN 325 MG TABLET PO ONE (22:23)
[2017-12-25] MEDS ORDERED: MORPHINE SULFATE 10 MG/ML INJ IV ONE (23:31)
[2017-12-25] MEDS ORDERED: ONDANSETRON HCL INJ/PF 4 MG/2 ML SDV IV ONE (23:31)
--- NOTE | 2017-12-25 23:33 | RADIOLOGY REPORT (SQ) ---
CT NECK ANGIOGRAPHY WITHOUT THEN WITH IV CONTRAST HISTORY: C2 fracture; evaluate for vascular injury. COMPARISON: CT scan from earlier the same day TECHNIQUE: CT angiography of the neck following dynamic bolus of intravenous contrast. 3D reformatted reconstructions were performed on an independent workstation. This exam was performed according to our departmental dose optimization program which includes use of automated exposure control, adjustment of the mA and/or kV according to patient size and/or use of iterative reconstruction technique. FINDINGS: Again seen comminuted fracture of the C2 vertebral body extending into the left lateral mass and left transverse foramen. Please see the recently performed cervical spine study for complete findings. The left vertebral artery at the level of the left C2 transverse foramen is markedly narrowed by the surrounding fracture fragments (axial image 76/107). Just distal to this (axial image 75), there is suggestion of a hypodense line through the artery, which may represent either artifact versus focal dissection. Patent flow opacification of the aortic arch origin right brachiocephalic, left common carotid, and left subclavian arteries. The bilateral vertebral artery origins are normal. Patent flow opacification through the bilateral common carotid arteries, carotid bifurcations, cervical internal/external carotid, and right vertebral artery. IMPRESSION: Markedly narrowed left vertebral artery within the left C2 transverse foramen concerning for focal injury at this level. Just distal to this site, there is a focal hypodense line through the artery which may represent either artifact versus focal dissection. MR angiography with axial fat saturated T1 sequence images is recommended to exclude dissection at this level.
[2017-12-26 00:29] VITALS: BP 147/76
[2017-12-26] MEDS ORDERED: HYDROMORPHONE HCL INJ/PF 2 MG/ML AMPULE IV ONE (00:29)
== END 2017-12-26 00:54 | disposition short-term general hospital (02) ==
LOC: ER 19:51
DX: S12.191A Other nondisplaced fracture of second cervical vertebra, initial encounter for closed fracture (principal); W19.XXXA Unspecified fall, initial encounter; Y93.89 Activity, other specified; E87.6 Hypokalemia; R55 Syncope and collapse; F18.10 Inhalant abuse, uncomplicated; F14.10 Cocaine abuse, uncomplicated; F15.10 Other stimulant abuse, uncomplicated; F17.210 Nicotine dependence, cigarettes, uncomplicated; I10 Essential (primary) hypertension
CPT/HCPCS: 99291; 96372; 96374; 96375; 36415; 85025; 81025; 80053; 81001; 70450; 70498; 72125; L0120; J0515; J2270; J1170; J2405

== ENCOUNTER 2018-06-04 19:26 | Emergency (ER) | payer SELFPAY ==
--- NOTE | 2018-06-04 20:53 | ER Document Report ---
ED General - General Chief Complaint: Neck Injury Stated Complaint: FALL Time Seen by Provider: 06/04/18 19:54 Notes: Patient is a 42-year-old female with a past medical history of a C2 fracture in November 2017 who presents after falling up stairs just prior to arrival. Patient states that she was walking upstairs, lost her balance and fell forward bracing herself with her right hand. She did not strike her head or neck. States that since that fall she has had a dull, throbbing, aching pain to the right side of her neck, right shoulder and right trapezius. She states that it is hard to raise her right arm above the level of her shoulder. She denies at the time of my evaluation any weakness or numbness. She does state that the right side of her face feels somewhat tingly. Has not tried anything to improve her symptoms. Nothing worsens her symptoms. No history of recent symptoms of similar nature. Has not contacted her primary care physician or neurosurgeon regarding today's concerns. Her C2 fracture was managed conservatively without operative intervention. TRAVEL OUTSIDE OF THE [place] IN LAST 30 DAYS: No - Related Data Allergies/Adverse Reactions: No Known Allergies Allergy (Verified 06/02/17 02:21) Past Medical History - General Information source: Patient - Social History Smoking Status: Current Every Day Smoker Chew tobacco use (# tins/day): No Frequency of alcohol use: None Drug Abuse: None Lives with: Spouse/Significant other Family History: Reviewed & Not Pertinent Patient has suicidal ideation: No Patient has homicidal ideation: No - Past Medical History Cardiac Medical History: Reports: Hx Hypertension Denies: Hx Congestive Heart Failure, Hx DVT, Hx Heart Attack, Hx Hypercholesterolemia, Hx Pulmonary Embolism Pulmonary Medical History: Denies: Hx Asthma, Hx COPD, Hx Sleep Apnea Neurological Medical History: Denies: Hx Seizures Endocrine Medical History: Denies: Hx Diabetes Mellitus Type 1, Hx Diabetes Mellitus Type 2, Hx Hyperthyroidism, Hx Hypothyroidism Renal/ Medical History: Reports: Hx Kidney Stones. Denies: Hx Peritoneal Dialysis GI Medical History: Denies: Hx Cirrhosis, Hx Gastroesophageal Reflux Disease, Hx Hepatitis Psychiatric Medical History: Denies: Hx Depression Infectious Medical History: Denies: Hx C-Diff, Hx Hepatitis, Hx MRSA Past Surgical History: Reports: Hx Cholecystectomy, Hx Tonsillectomy - Adenoids, Hx Tubal Ligation - Immunizations Hx Diphtheria, Pertussis, Tetanus Vaccination: Yes Review of Systems - Review of Systems Notes: Constitutional: Negative for fever. Eyes: Negative for visual changes. ENT: Negative for facial injury Cardiovascular: Negative for chest injury. Respiratory: Negative for shortness of breath. Gastrointestinal: Negative for abdominal injury. Genitourinary: Negative for genital injury Musculoskeletal: Positive for right shoulder and right neck pain Skin: Negative for laceration/abrasions. Neurological: Negative for head injury. Physical Exam - Vital signs Vitals: Temp Pulse Resp BP Pulse Ox 98.2 F 107 H 16 144/95 H 99 06/04/18 19:36 06/04/18 19:36 06/04/18 19:36 06/04/18 19:36 06/04/18 19:36 Interpretation: Hypertensive, Tachycardic Notes: PHYSICAL EXAMINATION: GENERAL: Well-appearing, no acute distress. HEAD: Atraumatic, normocephalic. EYES: Pupils equal round and reactive to light, extraocular movements intact, sclera anicteric, conjunctiva are normal. ENT: nares patent, no oral pharyngeal trauma. No hemotympanum, no Banda's sign, no raccoon eyes. NECK: No midline cervical spine tenderness. Patient able to move their head to 45 bilaterally without any discomfort. LUNGS: Breath sounds clear to auscultation bilaterally and equal. No wheezes rales or rhonchi. HEART: Regular rate and rhythm without murmurs. CHEST WALL: No ecchymosis over the chest wall. ABDOMEN: Soft, nontender, normoactive bowel sounds. No guarding, no rebound. No abdominal bruising EXTREMITIES: Normal range of motion, no pitting or edema. No long bone deformities. BACK: No midline spinal tenderness, step-offs, or deformities. NEUROLOGICAL: Face symmetric. Tongue protrudes midline. Extraocular motions intact. Pupils are 2 mm and equally reactive. Normal speech, normal gait. 5 out of 5 strength in both the distal and proximal upper and lower extremities bilaterally. Sensation is grossly intact throughout. Finger to nose testing normal. Pronator drift normal. RMU motor and sensory distribution intact bilaterally including to resistance on motor testing. PSYCH: Normal mood, normal affect. SKIN: Warm, Dry, normal turgor, no rashes or lesions noted. Course - Re-evaluation Re-evalutation: 06/04/18 20:54 Patient presents with concerns of possible reinjury after she was found to have a C2, C3, C4 fracture in November 2017. On neurologic exam patient has no neuro deficits of any kind. Full RMU motor and sensory distribution intact bilaterally. She has no distinct midline cervical spine tenderness. CT of the head and cervical spine been obtained. The patient's mechanism of injury would be unusual for any distinct cervical spine fracture as she fell forward while climbing up steps states that she braced herself and did not make contact with her head or neck. Her main complaint is about pain with range of motion of her right shoulder mostly along her right trapezius and in the right shoulder itself. Suspect more likely musculoskeletal strain. I do not see indication for MRI at this point given absence of any neurologic deficits as I do not clinically suspect a cord impingement. If CT of the cervical spine is unremarkable will plan for discharge home with outpatient follow-up. 06/04/18 21:35 CT the cervical spine does not show any acute fractures. Patient has been calm, playing on her cell phone, repeat neuro exam remains normal. At this time will discharge with return precautions and follow-up recommendations. Verbal discharge instructions given a the bedside and opportunity for questions given. Medication warnings reviewed. Patient is in agreement with this plan and has verbalized understanding of return precautions and the need for primary care fo llow-up in the next 24-72 hours. - Vital Signs Vital signs: Temp Pulse Resp BP Pulse Ox 98.2 F 107 H 16 128/95 H 97 06/04/18 19:36 06/04/18 19:36 06/04/18 21:01 06/04/18 21:01 06/04/18 21:01 - Diagnostic Test Radiology reviewed: Image reviewed, Reports reviewed Radiology results interpreted by me: 06/04/18 21:35 CT of the head: No acute intracranial bleed or mass Discharge - Discharge Clinical Impression: Neck pain Fall Qualifiers: Encounter type: initial encounter Qualified Code(s): W19.XXXA - Unspecified fall, initial encounter Condition: Good Disposition: HOME, SELF-CARE Additional Instructions: The CT scan does not show any new fractures in your neck. Your neurologic exam is normal. You likely strained the prior injured area. Please follow-up with your general physician and neurosurgeon regarding today's visit. For your pain: Take ibuprofen 600 mg and acetaminophen 1000 mg every 6 hours together as needed for pain. Return to the emergency department immediately if you develop weakness, numbness, worsening pain, pass out, develop swelling of the neck, or have any other symptoms that are worrisome to you. Prescriptions: Cyclobenzaprine HCl [Flexeril 10 mg Tablet] 10 mg PO TIDP PRN #15 tab PRN Reason:
--- NOTE | 2018-06-04 20:58 | RADIOLOGY REPORT (SQ) ---
EXAM DESCRIPTION: CT CERVICAL SPINE WITHOUT IV CONTRAST COMPLETED DATE/TME: 06/04/2018 19:54 CLINICAL HISTORY: 42 years, Female, fall, post op COMPARISON: None. EXAM DESCRIPTION: CLINICAL HISTORY: fall, post op COMPARISON: None Available TECHNIQUE: Contiguous axial images of the cervical spine were obtained without the administration of intravenous contrast followed by reconstruction images. This exam was performed according to our departmental dose-optimization program, which includes automated exposure control, adjustment of the mA and/or kV according to patient size and/or use of iterative reconstruction technique. FINDINGS: Dysmorphology of C2 is likely sequela of prior fracture. No acute displaced fracture is currently seen. Correlation with history will be helpful. However fusion at the fracture site is not yet complete. There is focal kyphosis at the base of C2. There is no acute fracture or subluxation. Prevertebral soft tissues are within normal limits. IMPRESSION: Prior fracture of C2. No definite acute fracture.
--- NOTE | 2018-06-04 21:00 | RADIOLOGY REPORT (SQ) ---
EXAM DESCRIPTION: CT HEAD WITHOUT IV CONTRAST COMPLETED DATE/TME: 06/04/2018 19:54 CLINICAL HISTORY: 42 years, Female, fall, post op COMPARISON: None. CT head without EXAM DESCRIPTION: CLINICAL HISTORY: fall, post op COMPARISON: None Available TECHNIQUE: Contiguous axial CT images of the head were obtained. Coronal and sagittal reconstructions were created from the axial data. This exam was performed according to our departmental dose-optimization program, which includes automated exposure control, adjustment of the mA and/or kV according to patient size and/or use of iterative reconstruction technique. FINDINGS: There is no evidence of acute mass, mass effect, midline shift or hemorrhage. The ventricles and extra-axial CSF spaces are unremarkable. The brain parenchyma appears normal for the patient's age. No acute abnormalities of the bones is seen. IMPRESSION: No acute intracranial abnormality.
[2018-06-04] MEDS ORDERED: IBUPROFEN 600 MG TABLET PO ONE (21:35)
[2018-06-04] MEDS ORDERED: MORPHINE SULFATE IR 15 MG TABLET PO ONE (21:35)
[2018-06-04] MEDS ORDERED: ACETAMINOPHEN 325 MG TABLET PO ONE (21:35)
[2018-06-04] MEDS ORDERED: CYCLOBENZAPRINE HCL 10 MG TABLET PO ONE (21:45)
[2018-06-04 21:58] VITALS: BP 128/95
== END 2018-06-04 22:10 | disposition home or self-care (01) ==
LOC: ER 19:26
DX: M54.2 Cervicalgia (principal); M25.511 Pain in right shoulder; R20.2 Paresthesia of skin; W10.9XXA Fall (on) (from) unspecified stairs and steps, initial encounter; F17.200 Nicotine dependence, unspecified, uncomplicated; I10 Essential (primary) hypertension; Z87.442 Personal history of urinary calculi; Z90.49 Acquired absence of other specified parts of digestive tract; Z98.51 Tubal ligation status
CPT/HCPCS: 99283; 70450; 72125; L0120

== ENCOUNTER 2019-01-07 09:59 | Emergency (ER) | payer SELFPAY ==
--- NOTE | 2019-01-07 11:07 | ER Document Report ---
ED General - General Chief Complaint: Foreign Body in Vagina Stated Complaint: VAGINAL PAIN/FOREIGN OBJECT IN VAGINA Time Seen by Provider: 01/07/19 10:55 Primary Care Provider: BARNEY MARMOLEJO MD [ACTIVE STAFF] - Follow up as needed BARBIE RYAN MD [ACTIVE STAFF] - Follow up as needed TRAVEL OUTSIDE OF THE [place] IN LAST 30 DAYS: No - HPI Notes: 43-year-old female presents the ED for concerns of having a foreign body in her vaginal canal for the last 2 days, thinks it is a tampon, states she had sexual intercourse and was unable to retrieve it as well as complaining of dental pain in her right upper mouth, states she had a tooth extracted yesterday from the [facility] and they did not give her a prescription for antibiotics. States her pain is 5 out of 10, throbbing achy. Has not tried any [id number] medication for this pain. Patient states she does have a history of trichomonas approximately 3 months ago was treated for this by the health department. - Related Data Allergies/Adverse Reactions: No Known Allergies Allergy (Verified 01/07/19 10:36) Past Medical History - General Information source: Patient - Social History Smoking Status: Current Every Day Smoker Chew tobacco use (# tins/day): No Drug Abuse: None Family History: Reviewed & Not Pertinent Patient has suicidal ideation: No Patient has homicidal ideation: No - Past Medical History Cardiac Medical History: Reports: Hx Hypertension Denies: Hx Congestive Heart Failure, Hx DVT, Hx Heart Attack, Hx Hypercholesterolemia, Hx Pulmonary Embolism Pulmonary Medical History: Denies: Hx Asthma, Hx COPD, Hx Sleep Apnea Neurological Medical History: Denies: Hx Seizures Endocrine Medical History: Denies: Hx Diabetes Mellitus Type 1, Hx Diabetes Mellitus Type 2, Hx Hyperthyroidism, Hx Hypothyroidism Renal/ Medical History: Reports: Hx Kidney Stones. Denies: Hx Peritoneal Dialysis GI Medical History: Denies: Hx Cirrhosis, Hx Gastroesophageal Reflux Disease, Hx Hepatitis Psychiatric Medical History: Denies: Hx Depression Infectious Medical History: Denies: Hx C-Diff, Hx Hepatitis, Hx MRSA Past Surgical History: Reports: Hx Cholecystectomy, Hx Tonsillectomy - Adenoids, Hx Tubal Ligation - Immunizations Hx Diphtheria, Pertussis, Tetanus Vaccination: Yes Review of Systems - Review of Systems Constitutional: No symptoms reported EENT: See HPI Cardiovascular: No symptoms reported Respiratory: No symptoms reported Gastrointestinal: No symptoms reported Genitourinary: See HPI Female Genitourinary: No symptoms reported Musculoskeletal: No symptoms reported Skin: No symptoms reported Hematologic/Lymphatic: No symptoms reported Neurological/Psychological: No symptoms reported Physical Exam - Vital signs Vitals: Temp Pulse Resp BP Pulse Ox 97.9 F 105 H 16 125/90 H 96 01/07/19 10:03 01/07/19 10:03 01/07/19 10:03 01/07/19 10:03 01/07/19 10:03 - Notes Notes: PHYSICAL EXAMINATION: reviewed vital signs by RN GENERAL: Well-appearing, well-nourished and in no acute distress. HEAD: Atraumatic, normocephalic. EYES: Pupils equal round and reactive to light, extraocular movements intact, conjunctiva are normal. ENT: Nares patent, oropharynx clear without exudates. Moist mucous membranes. #2,3 gingiva with swelling, erythema and induration. No drainage or open wounds. No fluctuance. No facial swelling. Poor oral dentition, right lower jaw with extensive dental caries, no definite swelling or effusion. NECK: Normal range of motion, supple without lymphadenopathy LUNGS: Breath sounds clear to auscultation bilaterally and equal. No wheezes rales or rhonchi. HEART: Regular rate and rhythm without murmurs ABDOMEN: Soft, nontender, nondistended abdomen. No guarding, no rebound. No masses appreciated. Female : External genitalia without erythema, exudate or discharge. Vaginal vault with retained tampon and tissue paper, removed with forceps. Cervix is of normal color without lesion. There is no bleeding noted. Uterus is noted to be of normal size and nontender. No cervical motion tenderness is seen. No masses are palpated. os closed, no adnexal tenderness or mass Musculoskeletal: Normal range of motion, no pitting or edema. No cyanosis. NEUROLOGICAL: Cranial nerves grossly intact. Normal speech, normal gait. Normal sensory, motor exams PSYCH: Normal mood, normal affect. SKIN: Warm, Dry, normal turgor, no rashes or lesions noted. Course - Re-evaluation Re-evalutation: 01/07/19 13:08 Afebrile vitals stable no distress. Patient given 1 g Rocephin IM and 60 mg of Toradol IM for pain control - Vital Signs Vital signs: Temp Pulse Resp BP Pulse Ox 98.0 F 83 17 120/75 100 01/07/19 12:18 01/07/19 12:18 01/07/19 12:18 01/07/19 12:18 01/07/19 12:18 Discharge - Discharge Clinical Impression: Foreign body in vagina, Dental caries, Bacterial vaginal infection, Vaginal yeast infection Condition: Stable Disposition: HOME, SELF-CARE Instructions: Dentist, Dental Infection or Abscess ([facility]), Dental Injury ([facility]), Rocephin ([facility]), Toradol Injection ([facility]), Vaginal Yeast Infection ([facility]), Vaginosis, Bacterial ([facility]) Additional Instructions: Do not take Flagyl and drink alcohol as it will cause nausea and vomiting. Take medication to completion, salt water gargles for dental caries. Please remove all foreign bodies in vaginal canal prior to sexual intercourse. Follow up with pcp as needed. Return immediately for any new or worsening symptoms. Follow up with primary care provider, call tomorrow to make followup appointment . Prescriptions: Clindamycin HCl 300 mg PO Q6H #28 capsule Fluconazole [Diflucan] 150 mg PO ONCE PRN #1 tablet PRN Reason: Metronidazole [Flagyl] 500 mg PO BID #14 tablet Referrals: BARBIE RYAN MD [ACTIVE STAFF] - Follow up as needed BARNEY MARMOLEJO MD [ACTIVE STAFF] - Follow up as needed
[2019-01-07] MEDS ORDERED: KETOROLAC TROMETHAMINE 60 MG/2 ML SDV IM ONE (11:56)
[2019-01-07] MEDS ORDERED: LIDOCAINE 1% INJ-PF (10 MG/ML) 30 ML SDV INJ ONE (11:59)
[2019-01-07] MEDS ORDERED: CEFTRIAXONE INJ 1000 MG VIAL IM ONE (11:59)
[2019-01-07 12:11] LABS: BACTERIA (WET MOUNT) 4+ BACTERIA SEEN; EPITHELIALS (WET MOUNT) 3+ EPITHELIALS SEEN; RBCS (WET MOUNT) 3+ RBCS SEEN; T.VAGINALIS (WET MOUNT) NO TRICHOMONAS SEEN; WBCS (WET MOUNT) 4+ WBCS SEEN; YEAST (WET MOUNT) BUDDING YEAST SEEN
[2019-01-07 12:24] VITALS: BP 120/75
[2019-01-07 13:32] LABS: CHLAM PCR NOT DETECTED (NOT DETECT)
== END 2019-01-07 12:35 | disposition home or self-care (01) ==
LOC: ER 09:59
DX: T19.2XXA Foreign body in vulva and vagina, initial encounter (principal); X58.XXXA Exposure to other specified factors, initial encounter; N76.0 Acute vaginitis; B96.89 Other specified bacterial agents as the cause of diseases classified elsewhere; B37.3 Candidiasis of vulva and vagina; K02.9 Dental caries, unspecified; K08.89 Other specified disorders of teeth and supporting structures; F17.200 Nicotine dependence, unspecified, uncomplicated; K08.409 Partial loss of teeth, unspecified cause, unspecified class; I10 Essential (primary) hypertension
CPT/HCPCS: 87210; 87491; 87591; J1885; J3490; J0696

== ENCOUNTER 2019-02-22 12:00 | Emergency (ER) | payer SELFPAY ==
[2019-02-22 12:10] VITALS: BP 145/93
[2019-02-22] MEDS ORDERED: NORMAL SALINE 1000 ML 1,000 ML IV ONE (12:35)
[2019-02-22] MEDS ORDERED: DIPH/PERTUSS(ACELL)/TETANUS VAC/PF 0.5 ML SYR (>=10YO) IM ONE ×2 (12:36→15:00)
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
[2019-02-22] MEDS ORDERED: LORAZEPAM INJ 2 MG/1 ML VIAL IV ONE ×2 (15:09→15:28)
[2019-02-22] MEDS ORDERED: CEFTRIAXONE INJ 250 MG VIAL IM ONE (15:15)
[2019-02-22] MEDS ORDERED: HEPATITIS B VIRUS VACCINE-PF 1 ML SYR IM ONE (15:15)
[2019-02-22] MEDS ORDERED: AZITHROMYCIN 250 MG TABLET PO ONE (15:15)
[2019-02-22] MEDS ORDERED: LORAZEPAM INJ 2 MG/1 ML VIAL ONE (15:16)
[2019-02-22 17:02] LABS: ABSOLUTE BASOPHILS # (AUTO) 0.1 10^3/uL (0.0-0.2); ABSOLUTE EOSINOPHILS # (AUTO) 0.3 10^3/uL (0.0-0.6); ABSOLUTE LYMPHOCYTES (AUTO) 2.6 10^3/uL (0.5-4.7); ABSOLUTE MONOCYTES (AUTO) 0.6 10^3/uL (0.1-1.4); BASOPHILS % (AUTO) 1.1 % (0-2); EOSINOPHILS % (AUTO) 2.7 % (0-6); HEMATOCRIT 44.4 % (36.0-47.0); HEMOGLOBIN 14.9 g/dL (12.0-15.5); LYMPHOCYTES % (AUTO) 27.6 % (13-45); MEAN CORPUSCULAR HEMOGLOBIN 30.4 pg (27.0-33.4); MEAN CORPUSCULAR HGB CONC 33.6 g/dL (32.0-36.0); MEAN CORPUSCULAR VOLUME 90 fl (80-97); MONOCYTES % (AUTO) 6.1 % (3-13); PLATELET COUNT 313 10^3/uL (150-450); RED BLOOD COUNT 4.91 10^6/uL (3.72-5.28); SEGMENTED NEUTROPHILS % (AUTO) 62.5 % (42-78); TOTAL CELLS COUNTED % (AUTO) 100 %; WHITE BLOOD COUNT 9.6 10^3/uL (4.0-10.5)
[2019-02-22 17:24] LABS: ALBUMIN 4.6 g/dL (3.5-5.0); ALKALINE PHOSPHATASE 78 U/L (38-126); ANION GAP 15 (5-19); ASPARTATE AMINO TRANSFERASE 30 U/L (14-36); BILIRUBIN,DIRECT 0.2 mg/dL (0.0-0.4); BILIRUBIN,TOTAL 0.5 mg/dL (0.2-1.3); BLOOD UREA NITROGEN 11 mg/dL (7-20); CALCIUM 9.5 mg/dL (8.4-10.2); CARBON DIOXIDE 23 mmol/L (22-30); CHLORIDE 102 mmol/L (98-107); GLUCOSE 84 mg/dL (75-110); POTASSIUM 3.8 mmol/L (3.6-5.0); TOTAL PROTEIN 7.7 g/dL (6.3-8.2)
[2019-02-24 05:37] LABS: HEPATITS B SURFACE ANTIGEN Negative (Negative)
[2019-02-24 07:11] LABS: HEPATITIS C VIRUS ANTIBODY <0.1 s/co ratio (0.0-0.9)
== END 2019-02-22 18:37 | disposition home or self-care (01) ==
LOC: ER 12:00 → EEVIPCON 12:00 → ER 18:37
DX: M54.2 Cervicalgia (principal); H57.10 Ocular pain, unspecified eye; Y04.2XXA Assault by strike against or bumped into by another person, initial encounter; Y92.009 Unspecified place in unspecified non-institutional (private) residence as the place of occurrence of the external cause; T74.21XA Adult sexual abuse, confirmed, initial encounter; Y07.03 Male partner, perpetrator of maltreatment and neglect; F15.129 Other stimulant abuse with intoxication, unspecified; F17.200 Nicotine dependence, unspecified, uncomplicated; I10 Essential (primary) hypertension; R00.0 Tachycardia, unspecified
CPT/HCPCS: 99284; 96374; 36415; 84703; 85025; 80053; 86701; 80074; 72125; J2060

== ENCOUNTER 2019-08-23 21:45 | Emergency (ER) | payer SELFPAY ==
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
[2019-08-23] MEDS ORDERED: LORAZEPAM INJ 2 MG/1 ML VIAL IV ONE (22:42)
[2019-08-23] MEDS ORDERED: FENTANYL CITRATE INJ/PF 100 MCG/2 ML AMPUL IV ONE (22:43)
[2019-08-23] MEDS ORDERED: KETOROLAC TROMETHAMINE INJ/PF 30 MG/1 ML SDV IV ONE (22:43)
[2019-08-23] MEDS ORDERED: PROMETHAZINE HCL INJ 25 MG/1 ML VIAL IV ONE (22:52)
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
[2019-08-23 23:51] LABS: ABSOLUTE BASOPHILS # (AUTO) 0.1 10^3/uL (0.0-0.2); ABSOLUTE EOSINOPHILS # (AUTO) 0.2 10^3/uL (0.0-0.6); ABSOLUTE LYMPHOCYTES (AUTO) 3.1 10^3/uL (0.5-4.7); ABSOLUTE MONOCYTES (AUTO) 0.4 10^3/uL (0.1-1.4); ABSOLUTE NEUT (AUTO) 8.2 10^3/uL (1.7-8.2); BASOPHILS % (AUTO) 0.6 % (0-2); EOSINOPHILS % (AUTO) 1.5 % (0-6); HEMATOCRIT 35.1 % (36.0-47.0); HEMOGLOBIN 12.4 g/dL (12.0-15.5); MEAN CORPUSCULAR HEMOGLOBIN 29.7 pg (27.0-33.4); MEAN CORPUSCULAR HGB CONC 35.4 g/dL (32.0-36.0); MEAN CORPUSCULAR VOLUME 84 fl (80-97); MONOCYTES % (AUTO) 3.6 % (3-13); PLATELET COUNT 440 10^3/uL (150-450); RED BLOOD COUNT 4.17 10^6/uL (3.72-5.28); RED CELL DISTRIBUTION WIDTH 21.2 % (11.5-14.0); SEGMENTED NEUTROPHILS % (AUTO) 68.3 % (42-78); TOTAL CELLS COUNTED % (AUTO) 100 %
[2019-08-24 00:11] LABS: ALBUMIN 4.6 g/dL (3.5-5.0); ALCOHOL 232 mg/dL (NONE DETECTED); ALKALINE PHOSPHATASE 91 U/L (38-126); ANION GAP 11 (5-19); ASPARTATE AMINO TRANSFERASE 23 U/L (14-36); BILIRUBIN,TOTAL 0.2 mg/dL (0.2-1.3); BLOOD UREA NITROGEN 13 mg/dL (7-20); CARBON DIOXIDE 26 mmol/L (22-30); CHLORIDE 105 mmol/L (98-107); GLUCOSE 89 mg/dL (75-110); POTASSIUM 4.7 mmol/L (3.6-5.0); TOTAL PROTEIN 7.8 g/dL (6.3-8.2)
[2019-08-24] MEDS ORDERED: LORAZEPAM 1 MG TABLET PO ONE (10:26)
[2019-08-24 10:34] VITALS: BP 157/94
== END 2019-08-24 11:04 | disposition home or self-care (01) ==
LOC: ER 21:45
DX: G62.9 Polyneuropathy, unspecified (principal); M54.2 Cervicalgia; Y08.89XA Assault by other specified means, initial encounter; F10.120 Alcohol abuse with intoxication, uncomplicated; M48.02 Spinal stenosis, cervical region; R20.0 Anesthesia of skin; F17.210 Nicotine dependence, cigarettes, uncomplicated; I10 Essential (primary) hypertension; Z98.1 Arthrodesis status; Z88.8 Allergy status to other drugs, medicaments and biological substances; Z88.1 Allergy status to other antibiotic agents; Z91.040 Latex allergy status
CPT/HCPCS: 99284; 96374; 96375; 36415; 80307; 85025; 80053; 71046; 70450; 72125; J3010; J1885; J2550

== ENCOUNTER 2019-10-05 13:50 | Emergency (ER) | payer SELFPAY ==
--- NOTE | 2019-10-05 15:37 | ER Document Report ---
ED Cardiac - General Chief Complaint: Cough Stated Complaint: SHORTNESS OF BREATH Time Seen by Provider: 10/05/19 15:08 Primary Care Provider: [facility] [NO LOCAL MD] - Follow up as needed Mode of Arrival: Ambulatory Information source: Patient Notes: 44-year-old female past medical history significant for asthma, pneumonia, anxiety presents emergency room complaining of a cough with dizziness for the past 2 days. She denies any fevers. Denies any recent travel. Denies any COVID-19 exposure. Also complaining of some midsternal burning chest pain that started earlier today. Did not take any medications for symptoms. Denies any shortness of breath or difficulty breathing. Denies any trauma or injury to her chest. TRAVEL OUTSIDE OF THE [place] IN LAST 30 DAYS: No - Related Data Allergies/Adverse Reactions: bupropion [From Wellbutrin] Allergy (Verified 08/23/19 23:13) cephalexin [From Keflex] Allergy (Verified 08/23/19 23:13) latex Allergy (Verified 08/23/19 23:13) Past Medical History - General Information source: Patient - Social History Smoking Status: Current Every Day Smoker Frequency of alcohol use: Occasional Drug Abuse: None Family History: Hypertension - Past Medical History Cardiac Medical History: Reports: Hx Hypertension Denies: Hx Congestive Heart Failure, Hx DVT, Hx Heart Attack, Hx Hypercholesterolemia, Hx Pulmonary Embolism Pulmonary Medical History: Reports: Hx Asthma Denies: Hx COPD, Hx Sleep Apnea Neurological Medical History: Denies: Hx Seizures Endocrine Medical History: Denies: Hx Diabetes Mellitus Type 1, Hx Diabetes Mellitus Type 2, Hx Hyperthyroidism, Hx Hypothyroidism Renal/ Medical History: Reports: Hx Kidney Stones. Denies: Hx Peritoneal Dialysis GI Medical History: Denies: Hx Cirrhosis, Hx Gastroesophageal Reflux Disease, Hx Hepatitis Psychiatric Medical History: Denies: Hx Depression Infectious Medical History: Denies: Hx C-Diff, Hx Hepatitis, Hx MRSA Past Surgical History: Reports: Hx Cholecystectomy, Hx Rectal Surgery - hemorrhoidectomy, Hx Tonsillectomy - Adenoids, Hx Tubal Ligation - Immunizations Hx Diphtheria, Pertussis, Tetanus Vaccination: Yes Review of Systems - Review of Systems Constitutional: Malaise EENT: No symptoms reported Cardiovascular: Chest pain, Dizziness Respiratory: Cough. denies: Short of breath Gastrointestinal: No symptoms reported Musculoskeletal: No symptoms reported Skin: No symptoms reported Neurological/Psychological: No symptoms reported -: Yes All other systems reviewed and negative Physical Exam - Vital signs Vitals: Temp Pulse Resp BP Pulse Ox 98.2 F 105 H 16 164/97 H 100 10/05/19 13:54 10/05/19 13:54 10/05/19 13:54 10/05/19 13:54 10/05/19 13:54 - Notes Notes: VITAL SIGNS: Within normal limits. GENERAL: Mild acute distress, non-toxic appearance. HEAD: Normal with no signs of head trauma. EYES: PERRLA, EOMI, conjunctiva normal, no discharge. EARS: Hearing grossly intact. NOSE: Normal. THROAT: Oropharynx is normal. NECK: Normal range of motion, no tenderness, supple, no lymphadenopathy, No adenopathy, no JVD. CHEST: Clear breath sounds bilaterally. No wheezes, rales, or rhonchi. Nontender to palpation to the chest wall. CARDIAC: Regular rate and rhythm. S1 and S2, without murmurs, gallops, or rubs. VASCULAR: No Edema. Peripheral pulses normal and equal in all extremities. ABDOMEN: Normal and soft with no tenderness, no masses or pulsatile masses. No organomegaly. Positive bowel sounds x4. No CVA tenderness noted bilaterally. GASTROINTESTINAL: Bowel sounds normal GENITOURINARY: Normal, No tenderness LYMPATHTIC: No lymphadenopathy noted. MUSCULOSKELETAL: Good range of motion of all major joints. Extremities without clubbing, cyanosis or edema. NEUROLOGICAL: Alert and oriented x 3. No focal sensory or strength deficits. Speech normal. Follows commands appropriately. PSYCHIATRIC: Normal Affect, judgement and mood. SKIN: Normal appearance with no rashes or lesions. Course - Re-evaluation Re-evalutation: 10/05/19 16:14 HEART Score: History 0 ECG 0 Age 1 Risk Factors 1 Troponin 0 Total: 2 If HEART score is less than 3 AND both tronponin measurments are normal, the 30 day risk of a major adverse cardiac event (all-cause mortality, myocardia infarction or need for coronary revascularization) is < 1% (Sensitivity 100%, NPV 100%). Chest pain in a patient without evidence of cardiac or other serious etiology on workup today. I discussed with patient that, based on their age, risk factors and emergency department testing today, the likelihood that their symptoms are related to a heart attack is very low (estimated risk of heart attack or over the next 30 days of less than 1%). The patient demonstrates decision making capacity and has verbalized an understanding of these risks to me. Based on this, the patient has chosen to follow-up as an outpatient. Usual chest pain return precautions reviewed. The patient states understanding and agreement with this plan. 10/05/19 17:30 Patient is resting comfortably she is no acute distress at this time. Reviewed labs, EKG, and chest x-ray results with patient. Still complains of a burning sensation to her chest. Will give GI cocktail. Aware waiting on repeat troponin and will reevaluate at that time. 10/05/19 17:33 Patient has now decided that she does not want to stay for her repeat troponin. Initially refused a GI cocktail. States she will try it but that she does not feel that her pain is "reflux" patient has asked to leave AGAINST MEDICAL ADVICE. The patient has chosen to leave the facility against medical advice. The relevant issues have been reviewed and discussed with the patient and family at the bedside. At the time of this assessment there is no indication for involuntary commitment. The patient is alert, oriented, and able to express clearly their reasoning for not wanting to remain in the emergency department for further treatment. The patient is not clinically psychotic, intoxicated, and denies and suicidal ideation. Differential or suspected diagnoses based on medical screening exam: Chest pain unknown etiology. The patient is aware of the concerning diagnoses and acknowledges understanding of the reasons for the following recommendations: Loss of life, permanent dis ability, chronic pain, worsening of condition, cardiac dysfunction, respiratory dysfunction loss of current lifestyle The following recommendations/services were offered and refused: Further testing The following risks were explained: , permanent disability, loss of function, chronic pain, loss of current lifestyle, worsening condition, respiratory dysfunction. Clinical impression: Patient is competent to make decisions regarding the medical that is being offered. 10/06/19 00:40 - Vital Signs Vital signs: Temp Pulse Resp BP Pulse Ox 98.2 F 105 H 22 H 137/89 H 96 10/05/19 13:54 10/05/19 13:54 10/05/19 17:01 10/05/19 17:00 10/05/19 17:01 - Laboratory Result Diagrams: 10/05/19 15:52 10/05/19 15:52 Laboratory results interpreted by me: 10/05/19 10/05/19 15:52 15:52 RDW 21.5 H Lymph % (Auto) 12.7 L Seg Neutrophils % 80.8 H Sodium 136.6 L - Diagnostic Test Radiology reviewed: Reports reviewed - EKG Interpretation by Me EKG shows normal: Sinus rhythm Rate: Normal Additional EKG results interpreted by me: 10/05/19 16:13 EKG was interpreted by ED physician Dr. Moss Normal sinus rhythm No acute STEMI Discharge - Discharge Clinical Impression: Chest pain of unknown etiology, Left against medical advice Condition: Stable Disposition: AGAINST MEDICAL ADVICE Instructions: Chest Pain of Unclear Cause ([facility]) Additional Instructions: You have chosen to leave AGAINST MEDICAL ADVICE. You have been counseled against the risks and benefits of leaving AGAINST MEDICAL ADVICE including but limited limited to , worsening condition, chronic pain, loss of current lifestyle, respiratory dysfunction, cardiac dysfunction. It is recommended that you follow-up patient with a primary care physician. You have been given infor mation about the community care clinic. Return for any new or worsening symptoms. Referrals: [facility] [NO LOCAL MD] - Follow up as needed
[2019-10-05 16:05] LABS: ABSOLUTE EOSINOPHILS # (AUTO) 0.1 10^3/uL (0.0-0.6); TOTAL CELLS COUNTED % (AUTO) 100 %
[2019-10-05 16:11] LABS: ABSOLUTE LYMPHOCYTES (AUTO) 1.2 10^3/uL (0.5-4.7); ABSOLUTE MONOCYTES (AUTO) 0.5 10^3/uL (0.1-1.4); ABSOLUTE NEUT (AUTO) 7.7 10^3/uL (1.7-8.2); BASOPHILS % (AUTO) 0.4 % (0-2); EOSINOPHILS % (AUTO) 0.8 % (0-6); HEMATOCRIT 36.6 % (36.0-47.0); HEMOGLOBIN 12.4 g/dL (12.0-15.5); LYMPHOCYTES % (AUTO) 12.7 % (13-45); MEAN CORPUSCULAR HEMOGLOBIN 28.6 pg (27.0-33.4); MEAN CORPUSCULAR VOLUME 84 fl (80-97); MONOCYTES % (AUTO) 5.3 % (3-13); PLATELET COUNT 344 10^3/uL (150-450); RED BLOOD COUNT 4.34 10^6/uL (3.72-5.28); RED CELL DISTRIBUTION WIDTH 21.5 % (11.5-14.0); SEGMENTED NEUTROPHILS % (AUTO) 80.8 % (42-78); WHITE BLOOD COUNT 9.6 10^3/uL (4.0-10.5)
[2019-10-05 16:28] LABS: ALBUMIN 4.5 g/dL (3.5-5.0); ALKALINE PHOSPHATASE 78 U/L (38-126); ANION GAP 8 (5-19); ASPARTATE AMINO TRANSFERASE 33 U/L (14-36); BILIRUBIN,DIRECT 0.1 mg/dL (0.0-0.4); BILIRUBIN,TOTAL 0.6 mg/dL (0.2-1.3); BLOOD UREA NITROGEN 16 mg/dL (7-20); CALCIUM 9.5 mg/dL (8.4-10.2); CARBON DIOXIDE 24 mmol/L (22-30); CHLORIDE 105 mmol/L (98-107); CREATINE KINASE 37 U/L (30-135); GLUCOSE 97 mg/dL (75-110); POTASSIUM 4.6 mmol/L (3.6-5.0); TOTAL PROTEIN 8.2 g/dL (6.3-8.2)
[2019-10-05 16:40] LABS: CREATINE KINASE MB 0.61 ng/mL (<4.55)
[2019-10-05 16:41] LABS: TROPONIN I < 0.012 ng/mL
--- NOTE | 2019-10-05 16:55 | RADIOLOGY REPORT (SQ) ---
EXAM DESCRIPTION: CHEST SINGLE VIEW IMAGES COMPLETED DATE/TIME: 10/05/2019 4:13 pm REASON FOR STUDY: chest pain COMPARISON: 08/23/2019 EXAM PARAMETERS: NUMBER OF VIEWS: One view. TECHNIQUE: Single frontal radiographic view of the chest acquired. RADIATION DOSE: NA LIMITATIONS: None. FINDINGS: LUNGS AND PLEURA: No opacities, masses or pneumothorax. No pleural effusion. MEDIASTINUM AND HILAR STRUCTURES: No masses. Contour normal. HEART AND VASCULAR STRUCTURES: Heart normal in size. Normal vasculature. BONES: No acute findings. HARDWARE: None in the chest. OTHER: No other significant finding. IMPRESSION: NO ACUTE RADIOGRAPHIC FINDING IN THE CHEST. TECHNICAL DOCUMENTATION: JOB ID: [id number] 2010 [employer]- All Rights Reserved Reading location - IP/workstation name: [email or web address]
[2019-10-05 17:23] VITALS: BP 137/89
[2019-10-05] MEDS ORDERED: MAG HYDROX/AL HYDROX/SIMETH SUSP 30 ML UDCUP PO ONE (17:25)
[2019-10-05] MEDS ORDERED: LIDOCAINE 2% VISCOUS SOLN 15 ML UDCUP PO ONE (17:25)
[2019-10-05] MEDS ORDERED: METOCLOPRAMIDE HCL ORAL SOLN 10 MG/10 ML UDCUP PO ONE (17:25)
--- NOTE | 2019-10-05 18:02 | EKG REPORT ---
SEVERITY:- BORDERLINE ECG - SINUS RHYTHM PROBABLE LEFT ATRIAL ABNORMALITY : Confirmed by: Jesus Mitchell MD 05-Oct-2019 18:01:00
== END 2019-10-05 17:43 | disposition left against medical advice (07) ==
LOC: ER 13:50
DX: Z53.20 Procedure and treatment not carried out because of patient's decision for unspecified reasons (principal); R05 Cough; R06.02 Shortness of breath; R42 Dizziness and giddiness; R07.9 Chest pain, unspecified; Z88.8 Allergy status to other drugs, medicaments and biological substances; F17.200 Nicotine dependence, unspecified, uncomplicated; I10 Essential (primary) hypertension
CPT/HCPCS: 93005; 99285; 36415; 82553; 82550; 84703; 85025; 80053; 84484; 71045; 93010; J3490